=== PATIENT | female | born 1945 | race Caucasian/White ===

== ENCOUNTER 2020-10-21 10:59 | Outpatient (REF) | payer MEDICARE, SELFPAY ==
[2020-10-21 11:50] LABS: MANUAL DIFF FLAG NO
[2020-10-21 11:53] LABS: Basophils Percent Auto 0.6 % (0-2); Eosinophils Absolute Auto 0.2 X10*3/uL (0.0-0.4); Eosinophils Percent Auto 2.5 % (0-4); Hematocrit 42.5 % (37-47); Hemoglobin 14.2 g/dl (12.0-16.0); Imm Gran Abs Auto 0.04 X10*3/uL (0.00-0.03); Imm Gran Pct Auto 0.6 % (0.0-0.4); Lymphocytes Absolute Auto 1.7 X10*3/uL (1.2-4.9); Lymphocytes Percent Auto 23.9 % (20-40); Mean Corpuscular HGB Conc 33.4 g/dl (31.0-35.0); Mean Corpuscular Volume 92.8 fL (80-98); Mean Platelet Volume 9.9 fL (9.4-12.3); Monocytes Absolute Auto 0.7 X10*3/uL (0.1-1.2); Monocytes Percent Auto 9.8 % (2-11); Neutrophils Absolute Auto 4.5 X10*3/uL (2.0-8.3); Neutrophils Percent Auto 62.6 % (45-73); Platelet Count 238 X10*3/uL (160-400); Red Blood Count 4.58 X10*6/uL (4.20-5.50); White Blood Count 7.2 X10*3/uL (4.8-10.8)
[2020-10-21 12:29] LABS: Alanine Aminotransferase 23 U/L (0-31); Albumin Level 4.4 g/dL (3.5-5.0); Alkaline Phosphatase 74 U/L (39-117); Anion Gap 13 (12-20); Aspartate Amino Transferase 21 U/L (5-31); Bilirubin Total 0.6 mg/dL (0.0-1.0); Blood Urea Nitrogen 21 mg/dL (9-16); Calcium 9.5 mg/dL (8.4-10.2); Carbon Dioxide 26 mmol/L (22-29); Chloride 104 mmol/L (96-108); Estimated Glomerular Filt Rate > 60; Glucose Random 95 mg/dL (60-115); Magnesium 2.4 mg/dL (1.6-2.6); Potassium 4.5 mmol/l (3.3-5.1); Sodium 138 mmol/L (135-145); Total Protein 7.5 g/dL (6.5-8.0)
[2020-10-21 12:50] LABS: Thyroid Stimulating Hormone 1.16 uIU/mL (0.32-4.0)
[2020-10-21 13:08] LABS: Folate > 20.0 ng/mL (> or = 4.0); Vitamin B12 715 pg/mL (200-900)
== END 2020-10-21 11:00 | disposition home or self-care (01) ==
LOC: HO.LAB 10:59
PROVIDERS: PCP Internal Medicine; Visit Provider Internal Medicine
DX: R25.2 Cramp and spasm (principal); I10 Essential (primary) hypertension
CPT/HCPCS: 36415; 80053; 82607; 82746; 83735; 84443; 85025

== ENCOUNTER 2020-12-23 | Outpatient (REF) | payer MEDICARE, SELFPAY | END 2020-12-23 00:01 | disposition home or self-care (01) | LOC: HO.VC | PROVIDERS: Visit Provider Internal Medicine | DX: Z23 Encounter for immunization (principal) | CPT/HCPCS: 0011A ==

== ENCOUNTER 2021-01-20 | Outpatient (REF) | payer MEDICARE, SELFPAY | END 2021-01-20 00:01 | disposition home or self-care (01) | LOC: HO.VC | PROVIDERS: Visit Provider Internal Medicine | DX: Z23 Encounter for immunization (principal) | CPT/HCPCS: 0012A ==

== ENCOUNTER 2021-04-21 07:16 | Outpatient (REF) | payer MEDICARE, SELFPAY ==
[2021-04-21 08:00] LABS: MANUAL DIFF FLAG NO
[2021-04-21 08:08] LABS: Basophils Percent Auto 0.7 % (0-2); Eosinophils Absolute Auto 0.2 X10*3/uL (0.0-0.4); Eosinophils Percent Auto 2.5 % (0-4); Hematocrit 42.8 % (37-47); Hemoglobin 14.2 g/dl (12.0-16.0); Imm Gran Abs Auto 0.04 X10*3/uL (0.00-0.03); Imm Gran Pct Auto 0.7 % (0.0-0.4); Lymphocytes Absolute Auto 1.9 X10*3/uL (1.2-4.9); Lymphocytes Percent Auto 31.7 % (20-40); Mean Corpuscular HGB Conc 33.2 g/dl (31.0-35.0); Mean Corpuscular Hemoglobin 30.7 pg (27.0-33.0); Mean Corpuscular Volume 92.4 fL (80-98); Mean Platelet Volume 9.6 fL (9.4-12.3); Monocytes Absolute Auto 0.5 X10*3/uL (0.1-1.2); Monocytes Percent Auto 8.7 % (2-11); Neutrophils Absolute Auto 3.3 X10*3/uL (2.0-8.3); Neutrophils Percent Auto 55.7 % (45-73); Platelet Count 221 X10*3/uL (160-400); Red Blood Count 4.63 X10*6/uL (4.20-5.50); Red Cell Distribution Width 13.1 % (11.0-16.0)
[2021-04-21 08:16] LABS: Glucose Urine UA NEG (NEG); Leukocyte Esterase Urine NEG (NEG); Nitrite Urine NEG (NEG); PH 6.5 (5.0-8.0); Specific Gravity - Urine 1.015 (1.005-1.025); Urine Blood NEG (NEG); Urine Ketones NEG (NEG); Urine Protein NEG (NEG-TRACE)
[2021-04-21 08:20] LABS: Appearance Urine CLEAR; Color Urine YELLOW
[2021-04-21 08:27] LABS: RBC Urine 0 /HPF (0); Squamous Epithelial Cell Urine 1+ /LPF; WBC Urine 0 /HPF (0-4)
[2021-04-21 08:28] LABS: Mucus Urine 1+ /LPF; Renal Epithelial Cells Urine 1+ /LPF
[2021-04-21 08:43] LABS: Alanine Aminotransferase 21 U/L (0-31); Albumin Level 4.5 g/dL (3.5-5.0); Alkaline Phosphatase 78 U/L (39-117); Anion Gap 11 (12-20); Aspartate Amino Transferase 19 U/L (5-31); Bilirubin Total 0.9 mg/dL (0.0-1.0); Blood Urea Nitrogen 16 mg/dL (9-16); Calcium 9.6 mg/dL (8.4-10.2); Carbon Dioxide 28 mmol/L (22-29); Chloride 104 mmol/L (96-108); Cholesterol 172 mg/dL; Estimated Glomerular Filt Rate > 60; Glucose Random 108 mg/dL (60-115); HDL Cholesterol 68 mg/dL; LDL Cholesterol Calculated 84 mg/dl; Potassium 4.3 mmol/L (3.3-5.1); Sodium 139 mmol/L (135-145); Total Protein 7.3 g/dL (6.5-8.0); Triglycerides 103 mg/dL
[2021-04-21 09:09] LABS: Free T4 (Free Thyroxine) 1.16 ng/dL (0.71-1.85); Thyroid Stimulating Hormone 1.17 uIU/mL (0.32-4.0); Vitamin D 25-OH Total 51.4 ng/mL (>30)
[2021-04-21 09:17] LABS: Folate > 20.0 ng/mL (> or = 4.0); Vitamin B12 606 pg/mL (200-900)
== END 2021-04-21 07:17 | disposition home or self-care (01) ==
LOC: HO.LAB 07:16
PROVIDERS: PCP Internal Medicine; Visit Provider Internal Medicine
DX: I10 Essential (primary) hypertension (principal); E78.00 Pure hypercholesterolemia, unspecified
CPT/HCPCS: 36415; 80053; 80061; 81001; 82306; 82607; 82746; 84439; 84443; 85025

== ENCOUNTER 2022-01-31 07:52 | Outpatient (REF) | payer MEDICARE, SELFPAY ==
[2022-01-31 09:20] LABS: Cholesterol 213 mg/dL; HDL Cholesterol 63 mg/dL; LDL Cholesterol Calculated 125 mg/dl; Triglycerides 129 mg/dL
== END 2022-01-31 07:53 | disposition home or self-care (01) ==
LOC: HO.LAB 07:52
PROVIDERS: PCP Internal Medicine; Visit Provider Internal Medicine
DX: E78.00 Pure hypercholesterolemia, unspecified (principal)
CPT/HCPCS: 36415; 80061

== ENCOUNTER 2022-04-19 07:14 | Outpatient (REF) | payer MEDICARE, SELFPAY ==
[2022-04-19 07:30] LABS: MANUAL DIFF FLAG NO
[2022-04-19 07:34] LABS: Basophils Absolute Auto 0.1 X10*3/uL (0.0-0.2); Basophils Percent Auto 0.7 % (0-2); Eosinophils Absolute Auto 0.2 X10*3/uL (0.0-0.4); Eosinophils Percent Auto 2.9 % (0-4); Hemoglobin 14.1 g/dl (12.0-16.0); Imm Gran Abs Auto 0.04 X10*3/uL (0.00-0.03); Imm Gran Pct Auto 0.6 % (0.0-0.4); Lymphocytes Percent Auto 28.9 % (20-40); Mean Corpuscular HGB Conc 32.8 g/dl (31.0-35.0); Mean Corpuscular Hemoglobin 29.9 pg (27.0-33.0); Mean Corpuscular Volume 91.3 fL (80.0-98.0); Mean Platelet Volume 9.4 fL (9.4-12.3); Monocytes Absolute Auto 0.6 X10*3/uL (0.1-1.2); Monocytes Percent Auto 8.2 % (2-11); Neutrophils Absolute Auto 4.1 x10*3/uL (2.0-8.3); Neutrophils Percent Auto 58.7 % (45-73); Platelet Count 242 X10*3/uL (160-400); Red Blood Count 4.71 X10*6/uL (4.20-5.50); Red Cell Distribution Width 13.1 % (11.0-16.0); White Blood Count 6.9 X10*3/uL (4.8-10.8)
[2022-04-19 07:57] LABS: Alanine Aminotransferase 28 U/L (0-31); Albumin Level 4.3 g/dL (3.5-5.0); Alkaline Phosphatase 77 U/L (39-117); Anion Gap 13 (12-20); Aspartate Amino Transferase 22 U/L (5-31); Blood Urea Nitrogen 18 mg/dL (9-16); Calcium 9.6 mg/dL (8.4-10.2); Carbon Dioxide 24 mmol/L (22-29); Chloride 106 mmol/L (96-108); Cholesterol 227 mg/dL; Estimated Glomerular Filt Rate > 60; Glucose Random 114 mg/dL (60-115); HDL Cholesterol 64 mg/dL; LDL Cholesterol Calculated 143 mg/dl; Potassium 4.4 mmol/L (3.3-5.1); Sodium 139 mmol/L (135-145); Total Protein 7.4 g/dL (6.5-8.0); Triglycerides 101 mg/dL
[2022-04-19 08:06] LABS: Estimated Average Glucose 108 mg/dL; Hemoglobin A1c % 5.4 %
[2022-04-19 08:20] LABS: Vitamin D 25-OH Total 71.8 ng/mL (>30)
[2022-04-19 09:05] LABS: Folate > 20.0 ng/mL (> or = 4.0); Vitamin B12 550 pg/mL (200-900)
== END 2022-04-19 07:15 | disposition home or self-care (01) ==
LOC: HO.LAB 07:14
PROVIDERS: PCP Internal Medicine; Visit Provider Internal Medicine
DX: E78.00 Pure hypercholesterolemia, unspecified (principal)
CPT/HCPCS: 36415; 80053; 80061; 82306; 82607; 82746; 83036; 84439; 84443; 85025

== ENCOUNTER 2022-05-14 07:05 | Outpatient (REF) | payer MEDICARE, SELFPAY ==
[2022-05-14 07:51] LABS: Alanine Aminotransferase 26 U/L (0-31); Albumin Level 4.4 g/dL (3.5-5.0); Alkaline Phosphatase 81 U/L (39-117); Anion Gap 12 (12-20); Aspartate Amino Transferase 22 U/L (5-31); Bilirubin Total 1.1 mg/dL (0.0-1.0); Blood Urea Nitrogen 15 mg/dL (9-16); Calcium 9.5 mg/dL (8.4-10.2); Carbon Dioxide 26 mmol/L (22-29); Chloride 106 mmol/L (96-108); Estimated Glomerular Filt Rate > 60; Glucose Fasting 118 mg/dL (60-99); Potassium 4.3 mmol/L (3.3-5.1); Sodium 140 mmol/L (135-145); Total Protein 7.3 g/dL (6.5-8.0)
[2022-05-14 08:12] LABS: Thyroid Stimulating Hormone 1.32 uIU/mL (0.32-4.0); Vitamin D 25-OH Total 73.3 ng/mL (>30)
[2022-05-16 13:57] LABS: Calcium (PTHI) 9.6 mg/dL (8.6-10.4); PTHI 42 pg/mL (16-77)
[2022-05-19 00:17] LABS: N-Telopeptide 43 (see note); NTXCreaRU 103 mg/dL (20-275)
== END 2022-05-14 07:06 | disposition home or self-care (01) ==
LOC: HO.LAB 07:05
PROVIDERS: PCP Internal Medicine; Visit Provider Obstetrics & Gynecology Gynecology
DX: M85.9 Disorder of bone density and structure, unspecified (principal)
CPT/HCPCS: 36415; 80053; 82306; 82523; 83970; 84443

== ENCOUNTER 2022-12-15 09:59 | Outpatient (REF) | payer MEDICARE, SELFPAY ==
[2022-12-15 11:14] LABS: Estimated Average Glucose 108 mg/dL; Hemoglobin A1C 127.6205 umol/L; Hemoglobin A1c % 5.4 %
[2022-12-15 11:24] LABS: Alanine Aminotransferase 24 U/L (0-31); Albumin Level 4.3 g/dL (3.5-5.0); Alkaline Phosphatase 73 U/L (39-117); Anion Gap 10 (12-20); Aspartate Amino Transferase 19 U/L (5-31); Bilirubin Total 0.8 mg/dL (0.0-1.0); Blood Urea Nitrogen 15 mg/dL (9-16); Calcium 9.2 mg/dL (8.4-10.2); Carbon Dioxide 29 mmol/L (22-29); Chloride 106 mmol/L (96-108); Cholesterol 213 mg/dL; Estimated Glomerular Filt Rate > 60; Glucose Random 91 mg/dL (60-115); HDL Cholesterol 61 mg/dL; LDL Cholesterol Calculated 133 mg/dl; Potassium 4.3 mmol/L (3.3-5.1); Sodium 141 mmol/L (135-145); Triglycerides 96 mg/dL
== END 2022-12-15 10:00 | disposition home or self-care (01) ==
LOC: HO.LAB 09:59
PROVIDERS: PCP Internal Medicine; Visit Provider Internal Medicine
DX: E78.00 Pure hypercholesterolemia, unspecified (principal); R73.01 Impaired fasting glucose
CPT/HCPCS: 36415; 80053; 80061; 83036

== ENCOUNTER 2023-04-27 09:51 | Outpatient (REF) | payer MEDICARE, SELFPAY | END 2023-04-27 09:52 | disposition home or self-care (01) | LOC: HO.LAB 09:51 | PROVIDERS: PCP Internal Medicine; Visit Provider Internal Medicine | DX: Z13.89 Encounter for screening for other disorder (principal) ==

== ENCOUNTER 2023-10-04 09:55 | Outpatient (REF) | payer MEDICARE, SELFPAY ==
[2023-10-04 10:05] LABS: MANUAL DIFF FLAG NO
[2023-10-04 10:41] LABS: Basophils Percent Auto 0.7 % (0-2); Eosinophils Absolute Auto 0.2 X10*3/uL (0.0-0.4); Eosinophils Percent Auto 3.6 % (0-4); Hematocrit 42.7 % (37.0-47.0); Hemoglobin 14.2 g/dl (12.0-16.0); Imm Gran Abs Auto 0.02 X10*3/uL (0.00-0.03); Imm Gran Pct Auto 0.3 % (0.0-0.4); Lymphocytes Percent Auto 34.4 % (20-40); Mean Corpuscular HGB Conc 33.3 g/dl (31.0-35.0); Mean Corpuscular Hemoglobin 30.6 pg (27.0-33.0); Mean Platelet Volume 9.9 fL (9.4-12.3); Monocytes Absolute Auto 0.5 X10*3/uL (0.1-1.2); Monocytes Percent Auto 9.1 % (2-11); Neutrophils Percent Auto 51.9 % (45-73); Platelet Count 215 X10*3/uL (160-400); Red Blood Count 4.64 X10*6/uL (4.20-5.50); Red Cell Distribution Width 13.1 % (11.0-16.0); White Blood Count 5.9 X10*3/uL (4.8-10.8)
[2023-10-04 10:58] LABS: Estimated Average Glucose 108 mg/dL; Hemoglobin A1c % 5.4 % (<6.0)
[2023-10-04 11:22] LABS: Anion Gap 11 (12-20); Blood Urea Nitrogen 14 mg/dL (9-16); Calcium 9.5 mg/dL (8.4-10.2); Carbon Dioxide 28 mmol/L (22-29); Chloride 108 mmol/L (96-108); Estimated Glomerular Filt Rate > 60; Glucose Random 99 mg/dL (60-115); Potassium 4.2 mmol/L (3.3-5.1); Sodium 143 mmol/L (135-145)
[2023-10-04 11:23] LABS: Alanine Aminotransferase 29 U/L (0-31); Albumin Level 4.3 g/dL (3.5-5.0); Alkaline Phosphatase 73 U/L (39-117); Aspartate Amino Transferase 23 U/L (5-31); Bilirubin Total 0.8 mg/dL (0.0-1.0); Cholesterol 211 mg/dL (<200); HDL Cholesterol 60 mg/dL (>40); LDL Cholesterol Calculated 128 mg/dL (<100); Magnesium 2.2 mg/dL (1.6-2.6); Total Protein 7.5 g/dL (6.5-8.0); Triglycerides 117 mg/dL (<150)
[2023-10-04 11:40] LABS: Vitamin D 25-OH Total 57.5 ng/mL (>30)
[2023-10-04 12:31] LABS: Folate 14.3 ng/mL (> or = 4.0); Vitamin B12 541 pg/mL (200-900)
== END 2023-10-04 09:56 | disposition home or self-care (01) ==
LOC: HO.LAB 09:55
PROVIDERS: PCP Internal Medicine; Visit Provider Internal Medicine
DX: E78.00 Pure hypercholesterolemia, unspecified (principal); R73.01 Impaired fasting glucose; E55.9 Vitamin D deficiency, unspecified
CPT/HCPCS: 36415; 80053; 80061; 82306; 82607; 82746; 83036; 83735; 84439; 84443; 85025

== ENCOUNTER 2023-11-08 09:18 | Outpatient (AMB) | payer MEDICARE, SELFPAY ==
[2023-11-08 09:26] VITALS: BP 130/78; PULSE 66; O2SAT 98; BMI 27.6
--- NOTE | 2023-11-08 09:26 | MHC.PC.OV ---
Vital Signs 11/08/23 09:26 Height 5 ft 4 in Weight 161 lb 0.2 oz BMI 27.6 BP 130/78 Blood Pressure Location Lt brachial Position Sitting Pulse 66 Pulse Source Pulse Oximeter Pulse Oximetry (%) 98 Oxygen Delivery Method Room Air Intake Visit Reasons: IGT, Cholesterol [employer] Required: No Allergies ciprofloxacin [Cipro] Allergy (Unknown, Verified 11/08/23 09:27) Unknown pravastatin Adverse Reaction (Intermediate, Verified 11/08/23 09:27) Leg cramps rosuvastatin Adverse Reaction (Intermediate, Verified 11/08/23 09:27) Muscle Pain simvastatin Adverse Reaction (Intermediate, Verified 11/08/23 09:27) Muscle pain zetia Allergy (Mild, Uncoded 11/08/23 09:27) muscle aches Medication List - Last Reconciled 11/08/23 by Ro Velásquez MD acetaminophen (Tylenol) 650 mg (2 x 325 mg) PO Q6H PRN 15 days ascorbate calcium (vitamin C) 500 mg PO DAILY calcium carbonate-vitamin D3 600 mg-5 mcg (200 unit) (Calcium 600 + D(3)) 1 tab PO DAILY coenzyme Q10 (CoQ-10) 100 mg PO DAILY magnesium oxide 400 mg PO DAILY uqemvnmvmigm-rsud-gmtnf acid 18-400 mg-mcg (Centrum Complete) 1 tab PO DAILY vitamin B complex 1 tab PO DAILY Tobacco use date assessed: 11/08/23 Fall risk assessment: No Falls in past year Last assessed Fall Risk: 11/08/23 Dental Screening Dental Screen Date: 11/08/23 Did you have a dental visit in the last 12 months?: Yes Did you have a dental problem in the last 6 months where you did not have access to dental care?: No Was dental information given to patient?: Patient has dentist HPI IGT, Cholesterol HPI Details 78-year-old overweight female with hypercholesterolemia GERD impaired glucose tolerance and generalized anxiety disorder last seen for physical in April 2023 patient is here for follow-up. Colonoscopy is up-to-date May 2019 mammogram is up-to-date. complains of cramps on the thigh bilateral deny fall or trauma - work up negative- stands a lot but no trauma. States no particular time deny any fall or trauma patient keeps well hydrated does not go to the leg and states not restless leg. [facility] Medical History (Updated 11/08/23 @ 09:50 by Ro Velásquez MD) Hypercholesterolemia Hypertension Anxiety Impaired glucose tolerance Surgical History History of cataract surgery Hx of tonsillectomy Family History Father No problems noted. Mother No problems noted. Sister Ovarian cancer Sister Lung cancer Social History (Updated 05/16/23 @ 09:25 by Ro Velásquez MD) Housing: House Alcohol intake: current Alcohol intake frequency: a few times a month Patient Tobacco Use Status: Former Tobacco user Tobacco use type: Cigarette Years Smoked: late 20 year old e-Cigarette/Vaping Use: Never Used service: No Current occupational status: retired Cognitive needs: No Hearing needs: No Vision needs: No Questionnaire Thrive Questionnaire Date Thrive assessed: 12/30/22 AUDIT C Alcohol Use Questionnaire (AUDIT-C) 1. How often do you have a drink containing alcohol?: Monthly or less 2. How many drinks containing alcohol do you have on a typical day when you are drinking?: 1 or 2 3. How often do you have six or more drinks on one occasion?: Never Total Score: 1 LAUREEN-7 AMB Questionnaire LAUREEN-7 Date LAUREEN - 7 assessed: 12/30/22 Source: Developed by Drs. Sukumar Mnotero, Radha Cantor, Austin Hester and colleagues, with an educational nima from [employer]. Physical exam (Primary Care) Vital Signs: Last Vital Signs Pulse 66 11/08/23 09:26 BP 130/78 11/08/23 09:26 Pulse Ox 98 11/08/23 09:26 Oxygen Delivery Method Room Air 11/08/23 09:26 BMI result Body Mass Index 27.6 Tobacco/Smoking Status: Tobacco use Status Tobacco use date assessed 11/08/23 11/08/23 09:27 Patient Tobacco Use Status Former Tobacco user 11/08/23 09:27 Tobacco use type Cigarette 11/08/23 09:27 e-Cigarette/Vaping Use Never Used 11/08/23 09:27 Thrive Assessment: Date of Thrive Assessment Date Thrive assessed 12/30/22 11/08/23 09:27 Const General: alert; No acute distress Eyes Conjunctivae: conjunctivae normal Resp Auscultation: clear to auscultation bilaterally Cardio Rate: regular rate Rhythm: regular rhythm GI Inspection: Yes normal to inspection Extrem General: Yes normal to inspection and No edema Assessment and Plan Assessment & Plan (1) Hypertension: Code(s): I10 - Essential (primary) hypertension Qualifiers: Hypertension type: essential hypertension Qualified Code(s): I10 - Essential (primary) hypertension Plan: Patient presently on no medication for blood pressure (2) Hypercholesterolemia: Code(s): E78.00 - Pure hypercholesterolemia, unspecified Plan: Avoid fried foods, chicken skin, eggs, butter margarine, pastries and meat. Be it pork or beef they have a lot of cholesterol LDL goal of less than 130 and triglyceride of less than 150. Patient's blood work shows normal cholesterol (3) GERD (gastroesophageal reflux disease): Code(s): K21.9 - Gastro-esophageal reflux disease without esophagitis Plan: Avoid the foods that causes that usually spicy foods, tomato products, juices, coffee, soda and foods that your sensitive to. After eating do not lie down, allow 3-4 hours before in lie down. And keep the head of bed above 30 degrees to avoid the acid from going up. (4) Generalized anxiety disorder: Code(s): F41.1 - Generalized anxiety disorder Plan: Stable (5) Impaired fasting blood sugar: Code(s): R73.01 - Impaired fasting glucose Plan: Decrease the amount of carbohydrate intake, pasta, bread, rice and potatoes are all sugar and that is aside from all the sweet stuff, remember that fruits are good but they are Sweet also. (6) Thigh cramp: Code(s): R25.2 - Cramp and spasm Plan: will send patient for PT. decline muscle relaxant due to drowsiness Coding Level of Care Code Est Pt Level 4 (91511) Diagnoses Essential hypertension I10 Hypertension type: essential hypertension Hypercholesterolemia E78.00 GERD (gastroesophageal reflux disease) K21.9 Generalized anxiety disorder F41.1 Impaired fasting blood sugar R73.01 Thigh cramp R25.2
== END 2023-11-08 10:04 | disposition home or self-care (01) ==
PROVIDERS: PCP Internal Medicine; Visit Provider Internal Medicine
DX: I10 Essential (primary) hypertension (principal); E78.00 Pure hypercholesterolemia, unspecified; K21.9 Gastro-esophageal reflux disease without esophagitis; F41.1 Generalized anxiety disorder; R73.01 Impaired fasting glucose; R25.2 Cramp and spasm
CPT/HCPCS: 99214

== ENCOUNTER 2023-12-27 09:31 | Outpatient (AMB) | payer MEDICARE, SELFPAY ==
[2023-12-27 09:31] VITALS: BP 160/80; PULSE 89; TEMP 36.6; O2SAT 96; BMI 28.1
--- NOTE | 2023-12-27 09:31 | MHC.OFFWIV ---
Intake Vital Signs 12/27/23 09:31 Height 5 ft 4 in Weight 164 lb BMI 28.1 BP 160/80 H Blood Pressure Location Lt brachial Position Sitting Pulse 89 Pulse Source Pulse Oximeter Temp 97.8 F Temp Source Temporal Artery Scan Pulse Oximetry (%) 96 Oxygen Delivery Method Room Air Intake Visit Reasons: EP Lft shoulder pain [id number] Intake Note: pt is here today for lft shoulder pain started 2 days ago Patient Tobacco Use Status: Former Tobacco user Allergies ciprofloxacin [Cipro] Allergy (Unknown, Verified 12/27/23 09:32) Unknown pravastatin Adverse Reaction (Intermediate, Verified 12/27/23 09:32) Leg cramps rosuvastatin Adverse Reaction (Intermediate, Verified 12/27/23 09:32) Muscle Pain simvastatin Adverse Reaction (Intermediate, Verified 12/27/23 09:32) Muscle pain zetia Allergy (Mild, Uncoded 11/08/23 09:27) muscle aches HPI HPI Comments History of Present Illness Details This is a 78-year-old female with a past medical history of hypertension, hyperlipidemia, anxiety and gastroesophageal reflux disease presenting for evaluation of left shoulder pain that has been present for the past 2 days. Patient denies any acute injury or trauma to her left shoulder. Patient describes injuring her left shoulder approximately 2 years ago when she was grabbing a bunch of bananas out of a box that was at eye level. Patient did not pursue any further treatment, imaging or physical therapy at that time. Patient has been taking Tylenol without relief of her discomfort over the past two days. Patient describes her pain as an 8/10 aching sensation and describes having difficulty combing her hair, pulling up her pants and carrying heavy items. Patient states that her has dementia and she has his primary caregiver which is her primary concern. Patient denies having any chest pain, shortness for breath, nausea, vomiting, abdominal pain or back pain. ON LICENSE OF [facility] Medical History Hypercholesterolemia Hypertension Anxiety Impaired glucose tolerance Surgical History History of cataract surgery Hx of tonsillectomy Family History Father No problems noted. Mother No problems noted. Sister Ovarian cancer Sister Lung cancer Social History Housing: House Alcohol intake: current Alcohol intake frequency: a few times a month Patient Tobacco Use Status: Former Tobacco user Tobacco use type: Cigarette Years Smoked: late 20 year old e-Cigarette/Vaping Use: Never Used service: No Current occupational status: retired Cognitive needs: No Hearing needs: No Vision needs: No Review of Systems ENT Denies neck pain Card Reports no additional complaints, Denies chest pain, Denies dyspnea and Denies dyspnea on exertion Resp Reports as per HPI, Denies dyspnea and Denies dyspnea on exertion Musc Details: left anterior shoulder pain; denies neck pain Denies neck pain, Denies numbness, Denies radiating pain into limb, Denies stiffness and Denies tingling Skin/Breast Reports system reviewed and no additional complaints, except as documented Neuro Denies numbness and Denies tingling Physical Exam Vital Signs: Last Vital Signs Temp 97.8 F 12/27/23 09:31 Pulse 89 12/27/23 09:31 BP 160/80 H 12/27/23 09:31 Pulse Ox 96 12/27/23 09:31 Oxygen Delivery Method Room Air 12/27/23 09:31 BMI result Body Mass Index 28.1 Patient is hypertensive. Const General: no acute distress Nutritional Appearance: average body habitus Orientation/consciousness: patient oriented x3 Limitations: no limitations Resp Effort & Inspection: normal respiratory effort Auscultation: clear to auscultation bilaterally Cardio Rate: regular rate Rhythm: regular rhythm Skin General skin exam: no rashes or lesions noted Neuro General: patient oriented x3 Extrem Left upper extremity: normal to inspection, shoulder/upper arm (point tenderness L anterior shoulder overlying the AC joint) Details: inspection abnormal, tenderness and abnormal ROM (pain L. shoulder with adduction of LUE against resistance); no swelling, no deformity and no unsual warmth and hand (chicle grinder feeder strength equal bilaterally) Psych Appearance: grossly normal Mental Status: mental status grossly normal Insight: Good insight present (Psych) Judgement: Good judgement present (Psych) Results Reviewed Results Reviewed: EKG NSR rate 97bpm; no ischemic changes. Assessment & Plan Assessment & Plan (1) Left shoulder pain: Comment: Symptoms consistent with a L. shoulder tendinopathy; no clinical concern for fracture - imaging deferred. No concern for ACS. Code(s): M25.512 - Pain in left shoulder Qualifiers: Chronicity: acute Qualified Code(s): M25.512 - Pain in left shoulder Plan: EC Naprosyn BID x 10 days; patient to follow-up with PCP for physical therapy as needed. Orders: Orders AMB EKG-In Office Today M25.512 - Pain in left shoulder Medications: New naproxen (EC-Naprosyn) 375 mg PO BID 20 tabs 0RF Coding Level of Care Code Est Pt Level 4 (99608) Diagnoses Acute pain of left shoulder M25.512 Chronicity: acute Time Spent (min) 25
== END 2023-12-27 10:11 | disposition home or self-care (01) ==
PROVIDERS: PCP Internal Medicine; Visit Provider Physician Assistant
DX: M25.512 Pain in left shoulder (principal)
CPT/HCPCS: 99214

== ENCOUNTER 2024-04-23 06:59 | Outpatient (REF) | payer MEDICARE, SELFPAY ==
[2024-04-23 07:10] LABS: MANUAL DIFF FLAG NO
[2024-04-23 08:09] LABS: Basophils Absolute Auto 0.1 X10*3/uL (0.0-0.2); Basophils Percent Auto 0.8 % (0-2); Eosinophils Absolute Auto 0.2 X10*3/uL (0.0-0.4); Eosinophils Percent Auto 3.2 % (0-4); Hematocrit 40.5 % (37.0-47.0); Hemoglobin 13.5 g/dl (12.0-16.0); Imm Gran Abs Auto 0.06 X10*3/uL (0.00-0.03); Lymphocytes Absolute Auto 1.8 X10*3/uL (1.2-4.9); Lymphocytes Percent Auto 30.5 % (20-40); Mean Corpuscular HGB Conc 33.3 g/dl (31.0-35.0); Mean Corpuscular Hemoglobin 30.9 pg (27.0-33.0); Mean Corpuscular Volume 92.7 fL (80.0-98.0); Monocytes Absolute Auto 0.5 X10*3/uL (0.1-1.2); Monocytes Percent Auto 8.9 % (2-11); Neutrophils Absolute Auto 3.3 x10*3/uL (2.0-8.3); Neutrophils Percent Auto 55.6 % (45-73); Platelet Count 227 X10*3/uL (160-400); Red Blood Count 4.37 X10*6/uL (4.20-5.50); Red Cell Distribution Width 12.9 % (11.0-16.0); White Blood Count 5.9 X10*3/uL (4.8-10.8)
[2024-04-23 08:53] LABS: Appearance Urine Clear; Color Urine Yellow; Glucose Urine UA Negative (Negative); Leukocyte Esterase Urine Moderate (2+) (Negative); Nitrite Urine Negative (Negative); UMIC TRIGGER UACC YES; Urine Blood Negative (Negative); Urine Ketones Negative (Negative); Urine Protein Negative (Neg-Trace)
[2024-04-23 08:57] LABS: Bacteria Urine None Seen (None Seen); Hyaline Casts Urine 0-2 /LPF (0-2); RBC Urine 0-2 /HPF (0-2); UACC Culture Trigger YES; WBC Urine 21-50 /HPF (0-5)
[2024-04-23 09:04] LABS: Alanine Aminotransferase 20 U/L (0-31); Albumin Level 4.2 g/dL (3.5-5.0); Alkaline Phosphatase 75 U/L (39-117); Anion Gap 14 (12-20); Aspartate Amino Transferase 18 U/L (5-31); Bilirubin Total 0.8 mg/dL (0.0-1.0); Blood Urea Nitrogen 15 mg/dL (9-16); Calcium 9.4 mg/dL (8.4-10.2); Carbon Dioxide 22 mmol/L (22-29); Chloride 109 mmol/L (96-108); Cholesterol 203 mg/dL (<200); Estimated Glomerular Filt Rate > 60; Free T4 (Free Thyroxine) 1.09 ng/dL (0.71-1.85); Glucose Random 110 mg/dL (60-115); HDL Cholesterol 58 mg/dL (>40); LDL Cholesterol Calculated 125 mg/dL (<100); Potassium 3.9 mmol/L (3.3-5.1); Sodium 141 mmol/L (135-145); Total Protein 7.3 g/dL (6.5-8.0); Triglycerides 100 mg/dL (<150)
[2024-04-23 09:09] LABS: Estimated Average Glucose 111 mg/dL; Hemoglobin A1C 168.7656 umol/L; Hemoglobin A1c % 5.5 % (<6.0)
[2024-04-23 09:15] LABS: Folate 14.7 ng/mL (> or = 4.0); Vitamin B12 436 pg/mL (200-900)
== END 2024-04-23 07:00 | disposition home or self-care (01) ==
LOC: HO.LAB 06:59
PROVIDERS: PCP Internal Medicine; Visit Provider Internal Medicine
DX: R73.01 Impaired fasting glucose (principal); E78.00 Pure hypercholesterolemia, unspecified; I10 Essential (primary) hypertension; R30.0 Dysuria
CPT/HCPCS: 36415; 80053; 80061; 81001; 82607; 82746; 83036; 84439; 84443; 85025; 87086

== ENCOUNTER 2024-05-17 08:41 | Outpatient (AMB) | payer MEDICARE, SELFPAY ==
[2024-05-17 09:01] VITALS: BP 138/68; PULSE 76; O2SAT 98; BMI 27.6
--- NOTE | 2024-05-17 09:01 | A.OFFPC_ITS ---
Vital Signs 05/17/24 09:01 Height 5 ft 4 in Weight 161 lb 0.5 oz BMI 27.6 BP 138/68 Blood Pressure Location Lt brachial Position Sitting Pulse 76 Pulse Source Pulse Oximeter Pulse Oximetry (%) 98 Oxygen Delivery Method Room Air Intake Visit Reasons: Annual Exam [employer] Qualified Required: No Allergies ciprofloxacin [Cipro] Allergy (Unknown, Verified 05/17/24 09:01) Unknown pravastatin Adverse Reaction (Intermediate, Verified 05/17/24 09:01) Leg cramps rosuvastatin Adverse Reaction (Intermediate, Verified 05/17/24 09:01) Muscle Pain simvastatin Adverse Reaction (Intermediate, Verified 05/17/24 09:01) Muscle pain zetia Allergy (Mild, Uncoded 05/17/24 09:01) muscle aches Medication List - Last Reconciled 05/17/24 by Ro Velásquez MD ascorbate calcium (vitamin C) 500 mg PO DAILY calcium carbonate-vitamin D3 600 mg-5 mcg (200 unit) (Calcium 600 + D(3)) 1 tab PO DAILY magnesium oxide 400 mg PO DAILY edbnqjhijzpq-scrd-splja acid 18-400 mg-mcg (Centrum Complete) 1 tab PO DAILY naproxen (EC-Naprosyn) 375 mg PO BID vitamin B complex 1 tab PO DAILY Tobacco use date assessed: 05/17/24 Fall risk assessment: No Falls in past year Last assessed Fall Risk: 05/17/24 Dental Screening Dental Screen Date: 05/17/24 Did you have a dental visit in the last 12 months?: Yes Did you have a dental problem in the last 6 months where you did not have access to dental care?: No Was dental information given to patient?: Patient has dentist HPI Annual Exam HPI Details 79-year-old overweight female with hyper tension hypercholesterolemia GERD impaired glucose tolerance and generalized anxiety disorder last seen in 11/08/2023 patient is here for physical exam. Patient's colonoscopy tubular adenoma last done in May 2019 mammogram is due and bone density is being done by gynecology. Review of the notes was in the ER April 26 for fall with bilateral knee pain no fractures. In December complained of left shoulder pain and was given an anti-inflammatory. using a slip on shoes- helping . occ dizzy. seen gyne and concern on frequency [facility] Medical History (Updated 05/17/24 @ 09:27 by Ro Velásquez MD) Hypercholesterolemia Anxiety Impaired glucose tolerance Surgical History History of cataract surgery Hx of tonsillectomy Family History Father No problems noted. Mother No problems noted. Sister Ovarian cancer Sister Lung cancer Social History (Updated 05/17/24 @ 09:27 by Ro Velásquez MD) Housing: House Alcohol intake: current Alcohol intake frequency: a few times a month Comment: once a month 1-2 drinks Patient Tobacco Use Status: Former Tobacco user Tobacco use type: Cigarette Years Smoked: late 20 year old e-Cigarette/Vaping Use: Never Used service: No Current occupational status: retired Cognitive needs: No Hearing needs: No Vision needs: No Questionnaire PHQ-9 Over the last 2 weeks, how often have you been bothered by any of the following problems? 1. Little interest or pleasure in doing things: not at all 2. Feeling down, depressed, or hopeless: not at all 3. Trouble falling or staying asleep, or sleeping too much: not at all 4. Feeling tired or having little energy: not at all 5. Poor appetite or overeating: not at all 6. Feeling bad about yourself - or that you are a failure or have let yourself or your family down: not at all 7. Trouble concentrating on things, such as reading the newspaper or watching television: not at all 8. Moving or speaking so slowly that other people could have noticed. Or the opposite - being so fidgety or restless that you have been moving around a lot more than usual: not at all 9. Thoughts that you would be better off or of hurting yourself in some way: not at all Total score: 0 Depression Screening Interpretation: Negative Depression Screening Done: Yes Source: Developed by Drs. Sukumar Montero, Radha Cantor, Austin Hester and colleagues, with an educational nima from [employer]. Thrive Questionnaire Date Thrive assessed: 12/30/22 AUDIT C Alcohol Use Questionnaire (AUDIT-C) 1. How often do you have a drink containing alcohol?: Monthly or less 2. How many drinks containing alcohol do you have on a typical day when you are drinking?: 1 or 2 3. How often do you have six or more drinks on one occasion?: Never Total Score: 1 LAUREEN-7 AMB Questionnaire LAUREEN-7 Date LAUREEN - 7 assessed: 05/17/24 Source: Developed by Drs. Sukumar Montero, Radha Cantor, Austin Hester and colleagues, with an educational nima from [employer]. Review of Systems Const Denies poor appetite and Denies weakness Eyes Denies no additional complaints ENT Reports Normal hearing present, Denies dizziness, Denies nasal congestion, Denies tinnitus and Denies sore throat Card Denies chest pain, Denies syncope, Denies rapid heart rate and Denies dyspnea Resp Denies cough and Denies dyspnea GI Denies change in stool character, Reports constipation, Denies diarrhea, Denies nausea and Denies vomiting Denies urinary frequency, Denies difficulty voiding and Denies dysuria Neuro Reports Normal hearing present, Denies confusion, Denies dizziness, Denies syncope and Denies weakness Psych Denies confusion Physical exam (Primary Care) Vital Signs: Last Vital Signs Pulse 76 05/17/24 09:01 BP 138/68 05/17/24 09:01 Pulse Ox 98 05/17/24 09:01 Oxygen Delivery Method Room Air 05/17/24 09:01 BMI result Body Mass Index 27.6 Tobacco/Smoking Status: Tobacco use Status Tobacco use date assessed 05/17/24 05/17/24 09:02 Patient Tobacco Use Status Former Tobacco user 05/17/24 09:02 Tobacco use type Cigarette 05/17/24 09:02 e-Cigarette/Vaping Use Never Used 05/17/24 09:02 PHQ-9: PHQ-9 Score PHQ-9: Total score 0 05/17/24 09:06 Depression Screening Interpretation: Negative Thrive Assessment: Date of Thrive Assessment Date Thrive assessed 12/30/22 05/17/24 09:02 Const General: No confusion Orientation/consciousness: No confusion HENMT Head: Yes normocephalic Ears: external ears normal and TM's normal bilaterally Face and sinus: Yes normal facial exam Mouth: moist mucous membranes Throat: Yes tonsils normal Eyes Conjunctivae: conjunctivae normal Pupils: Equal, round and reactive pupils present and Pupil accommodation reflex normal Direct Ophthalmoscopy: normal light reflex Neck Neck: No lymphadenopathy Thyroid: Thyroid normal Chest Chest palpation & inspection: normal inspection of the chest Resp Effort & Inspection: normal respiratory effort and no audible wheezes Auscultation: clear to auscultation bilaterally, no crackles, no wheezes and lung sounds not diminished Cardio Rate: regular rate Rhythm: regular rhythm Peripheral pulses: radial pulses present and dorsalis pedis present GI Palpation (GI): no masses Auscultation: normal bowel sounds and normoactive bowel sounds Rectal Exam - Female: deferred Skin General skin exam: no rashes or lesions noted Rashes: no rashes Neuro General: No confusion Cranial nerves: Yes Equal, round and reactive pupils present and Yes Normal hearing present Cognition (Neuro): normal cognition Gait exam (Neuro): Normal gait present Motor exam (neuro): 5/5 motor strength present throughout Deep tendon reflexes (DTR's): Right brachioradialis reflex intensity grade: 2+, Left brachioradialis reflex intensity grade: 2+, Right patellar reflex intensity grade: 2+ and Left patellar reflex intensity grade: 2+ Extrem General: No edema Assessment and Plan Assessment & Plan (1) Annual physical exam: Code(s): Z00.00 - Encounter for general adult medical examination without abnormal findings Plan: Patient is advised to eat healthy, keep well hydrated, keep active and have adequate sleep. (2) Hypercholesterolemia: Code(s): E78.00 - Pure hypercholesterolemia, unspecified Plan: Avoid fried foods, chicken skin, eggs, butter margarine, pastries and meat. Be it pork or beef they have a lot of cholesterol (3) GERD (gastroesophageal reflux disease): Code(s): K21.9 - Gastro-esophageal reflux disease without esophagitis Plan: Avoid the foods that causes that usually spicy foods, tomato products, juices, coffee, soda and foods that your sensitive to. After eating do not lie down, allow 3-4 hours before in lie down. And keep the head of bed above 30 degrees to avoid the acid from going up. (4) Impaired fasting blood sugar: Code(s): R73.01 - Impaired fasting glucose Plan: Decrease the amount of carbohydrate intake, pasta, bread, rice and potatoes are all sugar and that is aside from all the sweet stuff, remember that fruits are good but they are Sweet also. (5) Generalized anxiety disorder: Code(s): F41.1 - Generalized anxiety disorder Plan: Stable (6) Overweight (BMI 25.0-29.9): Code(s): E66.3 - Overweight Plan: Continue with diet and exercise Medications: Refilled naproxen (EC-Naprosyn) 375 mg PO BID 20 tabs 0RF Coding Level of Care Code Est Pt Prev Care >65y(35059) Diagnoses Annual physical exam Z00.00 Hypercholesterolemia E78.00 GERD (gastroesophageal reflux disease) K21.9 Impaired fasting blood sugar R73.01 Generalized anxiety disorder F41.1 Overweight (BMI 25.0-29.9) E66.3 Additional Codes PHQ-9 - 56807 - PHQ-9 Billing: ([id number])
== END 2024-05-17 09:44 | disposition home or self-care (01) ==
PROVIDERS: PCP Internal Medicine; Visit Provider Internal Medicine
DX: Z00.00 Encounter for general adult medical examination without abnormal findings (principal); E78.00 Pure hypercholesterolemia, unspecified; K21.9 Gastro-esophageal reflux disease without esophagitis; R73.01 Impaired fasting glucose; F41.1 Generalized anxiety disorder; E66.3 Overweight
CPT/HCPCS: 99397

== ENCOUNTER 2024-07-10 09:32 | Outpatient (REF) | payer MEDICARE, SELFPAY ==
[2024-07-10 10:17] LABS: Appearance Urine Clear; Color Urine Yellow; Glucose Urine UA Negative (Negative); Leukocyte Esterase Urine Trace (Negative); Nitrite Urine Negative (Negative); UMIC TRIGGER UACC YES; Urine Blood Negative (Negative); Urine Ketones Negative (Negative); Urine Protein Negative (Neg-Trace)
[2024-07-10 10:23] LABS: Bacteria Urine None Seen (None Seen); Hyaline Casts Urine 0-2 /LPF (0-2); RBC Urine 0-2 /HPF (0-2); Squamous Epithelial Cell Urine 0-2 /HPF (0-2); WBC Urine 0-5 /HPF (0-5)
== END 2024-07-10 09:33 | disposition home or self-care (01) ==
LOC: HO.LAB 09:32
PROVIDERS: PCP Internal Medicine; Visit Provider Internal Medicine
DX: R30.0 Dysuria (principal); I10 Essential (primary) hypertension
CPT/HCPCS: 81001

== ENCOUNTER 2024-09-24 10:09 | Outpatient (AMB) | payer MEDICARE, SELFPAY ==
[2024-09-24 10:15] VITALS: BP 132/68; PULSE 78; O2SAT 98; BMI 27.5
--- NOTE | 2024-09-24 10:15 | A.OFFPC_ITS ---
Vital Signs 09/24/24 10:15 Height 5 ft 4 in Weight 160 lb 0.4 oz BMI 27.5 BP 132/68 Blood Pressure Location Lt brachial Position Sitting Pulse 78 Pulse Source Pulse Oximeter Pulse Oximetry (%) 98 Oxygen Delivery Method Room Air Intake Visit Reasons: scabs on nose Allergies ciprofloxacin [Cipro] Allergy (Unknown, Verified 09/24/24 10:16) Unknown pravastatin Adverse Reaction (Intermediate, Verified 09/24/24 10:16) Leg cramps rosuvastatin Adverse Reaction (Intermediate, Verified 09/24/24 10:16) Muscle Pain simvastatin Adverse Reaction (Intermediate, Verified 09/24/24 10:16) Muscle pain zetia Allergy (Mild, Uncoded 09/24/24 10:16) muscle aches Medication List - Last Reconciled 09/24/24 by Mago Christianson PA-C ascorbate calcium (vitamin C) 500 mg PO DAILY calcium carbonate-vitamin D3 600 mg-5 mcg (200 unit) (Calcium 600 + D(3)) 1 tab PO DAILY magnesium oxide 400 mg PO DAILY ueexwhxrxuht-qoqk-mjbks acid 18-400 mg-mcg (Centrum Complete) 1 tab PO DAILY naproxen (EC-Naprosyn) 375 mg PO BID vitamin B complex 1 tab PO DAILY Tobacco use date assessed: 05/17/24 Dental Screening Dental Screen Date: 05/17/24 HPI scabs on nose HPI Details 79-year-old overweight female with hyper tension hypercholesterolemia GERD impaired glucose tolerance and generalized anxiety disorder last seen by Dr. Velásquez 04/2024 coming in for acute problem. Patient states several months ago she hit her nose on the car door which resulted in a scab. Since then the scab has been healing however she will occasionally scrape it off in the shower accidentally. She is concerned because the scab does not seem to be healing. She was advised to use vaseline on the area which has been helping. She also mentions she has an ongoing issue with thigh cramping. She does have a history of arthritis in her feet which alters her gait. The cramping is primarily at night and will happen after she has particularly busy days. [facility] Medical History (Updated 09/24/24 @ 12:47 by Mago Christianson PA-C) Hypercholesterolemia Anxiety Impaired glucose tolerance Surgical History History of cataract surgery Hx of tonsillectomy Family History Father No problems noted. Mother No problems noted. Sister Ovarian cancer Sister Lung cancer Social History (Updated 05/17/24 @ 09:27 by Ro Velásquez MD) Housing: House Alcohol intake: current Alcohol intake frequency: a few times a month Comment: once a month 1-2 drinks Patient Tobacco Use Status: Former Tobacco user Tobacco use type: Cigarette Years Smoked: late 20 year old e-Cigarette/Vaping Use: Never Used service: No Current occupational status: retired Cognitive needs: No Hearing needs: No Vision needs: No Questionnaire Thrive Questionnaire Date Thrive assessed: 12/30/22 LAUREEN-7 AMB Questionnaire LAUREEN-7 Date LAUREEN - 7 assessed: 05/17/24 Source: Developed by Drs. Sukumar Montero, Radha Cantor, Austin Hester and colleagues, with an educational nima from [employer]. Review of Systems Const Denies body aches, Denies chills, Denies fever(s) and Denies poor appetite Eyes Reports no additional complaints Card Denies chest pain and Denies dyspnea Resp Denies cough and Denies dyspnea GI Denies nausea and Denies vomiting Reports no additional complaints Musc Reports no additional complaints, Reports as per HPI and Reports abnormal gait Skin/Breast Reports system reviewed and no additional complaints, except as documented Neuro Reports abnormal gait Psych Reports no additional complaints Physical exam (Primary Care) Vital Signs: Last Vital Signs Pulse 78 09/24/24 10:15 BP 132/68 09/24/24 10:15 Pulse Ox 98 09/24/24 10:15 Oxygen Delivery Method Room Air 09/24/24 10:15 BMI result Body Mass Index 27.5 Tobacco/Smoking Status: Tobacco use Status Tobacco use date assessed 05/17/24 09/24/24 10:23 Patient Tobacco Use Status Former Tobacco user 09/24/24 10:23 Tobacco use type Cigarette 09/24/24 10:23 e-Cigarette/Vaping Use Never Used 09/24/24 10:23 Thrive Assessment: Date of Thrive Assessment Date Thrive assessed 12/30/22 09/24/24 10:23 Const General: cooperative, healthy appearing, comfortable and no acute distress Orientation/consciousness: patient oriented x3 HENIA Other: Small scab on the bridge of the nose with routine healing. Head: Yes normocephalic Ears: hearing grossly normal bilaterally General nose exam: Normal external nose present Eyes General: appearance normal, both eyes and all related structures Conjunctivae: conjunctivae normal Neck Neck: Yes full ROM and Yes no lymphadenopathy Resp Effort & Inspection: normal respiratory effort Auscultation: clear to auscultation bilaterally, no crackles, no rales, no rhonchi and no wheezes Cardio Rate: regular rate Rhythm: regular rhythm Back/Spine/Pelvis Other: No pain to palpation of spine, bilateral hips or thighs. No calf swelling. Skin General skin exam: no rashes or lesions noted Neuro General: patient oriented x3 Gait exam (Neuro): Normal gait present Extrem General: Yes normal to inspection, Yes full ROM and No edema Psych Affect: normal affect Attitude: cooperative Insight: Good insight present (Psych) Judgement: Good judgement present (Psych) Results AMB Urinalysis, Automated UA Leukoctes 0 Negar/uL Last Edit by JE Dominguez on 09/24/24 10:38 UA Nitrite Negative Last Edit by Adelaide Rojas Martha on 09/24/24 10:38 UA Urobilinogen 0.2 mg/dL Last Edit by Adelaide Rojas Martha on 09/24/24 10:38 UA Protein 0 mg/dL Last Edit by Adelaide Rojas Martha on 09/24/24 10:38 UA pH 5.5 Last Edit by Adelaide Rojas Martha on 09/24/24 10:38 UA Blood 0 Ryland/uL Last Edit by Adelaide Rojas [facility] on 09/24/24 10:38 UA Specific Starke 1.030 Last Edit by Adelaide Rojas Martha on 09/24/24 10:38 UA Ketone Negative Last Edit by JE Dominguez on 09/24/24 10:38 UA Bilirubin 0 mg/dL Last Edit by Adelaide Rojas Martha on 09/24/24 10:38 UA Glucose 0 mg/dL Last Edit by Adelaide Rojas Martha on 09/24/24 10:38 Results Reviewed Results Reviewed: Laboratory Last Values Urine pH (Auto) 5.5 09/24/24 10:23 Specific [place]ke (Auto) 1.030 09/24/24 10:23 Urine Protein (Auto) 0 mg/dL 09/24/24 10:23 Glucose (UA)(Auto) 0 mg/dL 09/24/24 10:23 Urine Ketones (Auto) Negative 09/24/24 10:23 Urine Blood (Auto) 0 Ryland/uL 09/24/24 10:23 Urine Nitrite (Auto) Negative 09/24/24 10:23 Urine Bilirubin (Auto) 0 mg/dL 09/24/24 10:23 Urine Urobilinogen (Auto) 0.2 mg/dL 09/24/24 10:23 Leukocyte Esterase (Auto) 0 Negar/uL 09/24/24 10:23 Coding Level of Care Code Est Pt Level 3 (79154) Diagnoses Joint pain M25.50 Scab R23.4 Thigh cramp R25.2 Polyuria R35.89 Assessment & Plan Assessment & Plan (1) Joint pain: Code(s): M25.50 - Pain in unspecified joint Category: Medical Plan: Patient complaining of bilateral hands and feet. Previously diagnosed with arthritis and is not interested in further workup or orthopedics referral at this time. Ordered for rheumatoid factor to evaluate for RA. (2) Scab: Comment: scab on bridge of nose present for several months Code(s): R23.4 - Changes in skin texture Category: Medical Plan: Scab appears to have routine healing and no evidence of infection at this time. Patient requesting evaluation by dermatology and referral was placed today. (3) Thigh cramp: Code(s): R25.2 - Cramp and spasm Category: Medical Plan: Patient complaining of thigh cramping which has been ongoing for several years. Discussed it (4) Polyuria: Code(s): R35.89 - Other polyuria Category: Medical Plan: Patient complaining of frequent urination. She states she will occasionally have nights where she uses the restroom more often but this will come and go. Urinalysis negative for infection and patient would like to defer further workup at this time. Plan This note was constructed using voice recognition software. While every effort has been made to ensure accuracy and admissions rn, still areas may have been included sometimes these areas may affect the content or meeting of the given symptoms. Total time spent caring for the patient today was 30 minutes. This includes time spent before the visit reviewing the chart, time spent during the visit, and time spent after the visit and documentation. Orders: Orders AMB Urinalysis Automated Today R35.0 - Frequency of micturition Rheumatoid Factor Today M25.50 - Pain in unspecified joint Referrals Dermatology Referral R23.4 - Changes in skin texture Medications: New meloxicam 7.5 mg PO DAILY 30 tabs 1RF
== END 2024-09-24 11:37 | disposition home or self-care (01) ==
LOC: HO.HMCH 10:10
PROVIDERS: PCP Internal Medicine
DX: M25.50 Pain in unspecified joint (principal); R23.4 Changes in skin texture; R25.2 Cramp and spasm; R35.89 Other polyuria; R35.0 Frequency of micturition

== ENCOUNTER → 2024-09-24 10:09 | Outpatient (BNVA) | payer MEDICARE, SELFPAY | PROVIDERS: PCP Internal Medicine | DX: M25.50 Pain in unspecified joint (principal); R23.4 Changes in skin texture; R25.2 Cramp and spasm; R35.89 Other polyuria | CPT/HCPCS: 81003; 99212 ==

== ENCOUNTER 2024-11-02 11:22 | Outpatient (AMB) | payer MEDICARE, SELFPAY ==
[2024-11-02 11:30] VITALS: BP 124/83; PULSE 82; TEMP 36.6; O2SAT 98
--- NOTE | 2024-11-02 11:30 | MHC.OFFWIV ---
Intake Vital Signs 11/02/24 11:30 Height 5 ft 4 in BP 124/83 Blood Pressure Location Lt brachial Position Sitting Pulse 82 Pulse Source Pulse Oximeter Temp 97.9 F Temp Source Oral Pulse Oximetry (%) 98 Intake Visit Reasons: EP LT Rib pain Intake Note: Pt is here for rib pain when coughing and sneezing Patient Tobacco Use Status: Former Tobacco user Allergies ciprofloxacin [Cipro] Allergy (Unknown, Verified 11/02/24 11:31) Unknown pravastatin Adverse Reaction (Intermediate, Verified 11/02/24 11:31) Leg cramps rosuvastatin Adverse Reaction (Intermediate, Verified 11/02/24 11:31) Muscle Pain simvastatin Adverse Reaction (Intermediate, Verified 11/02/24 11:31) Muscle pain zetia Allergy (Mild, Uncoded 09/24/24 10:16) muscle aches Do you need a note to return to daycare/school/sports/work: No HPI HPI Comments History of Present Illness Details She presents to office with rib pain She had insulation put into her house but they put a jam under the door and she tripped and fell over it Occured last week L side ribs under axilla was injured No HT or LOC Bruise L arm resolved She said at rest minimal Pain with cough and movement of arms and trunk No blood thinner use No pain medicine used No SOB PFSH Medical History (Updated 11/02/24 @ 11:38 by Dahlia Yuen PA-C) Hypercholesterolemia Anxiety Impaired glucose tolerance Surgical History History of cataract surgery Hx of tonsillectomy Family History Father No problems noted. Mother No problems noted. Sister Ovarian cancer Sister Lung cancer Social History (Updated 05/17/24 @ 09:27 by Ro Velásquez MD) Housing: House Alcohol intake: current Alcohol intake frequency: a few times a month Comment: once a month 1-2 drinks Patient Tobacco Use Status: Former Tobacco user Tobacco use type: Cigarette Years Smoked: late 20 year old e-Cigarette/Vaping Use: Never Used service: No Current occupational status: retired Cognitive needs: No Hearing needs: No Vision needs: No Review of Systems Const Denies chills, Denies fever(s) and Denies headache(s) Eyes Denies blurry vision ENT Denies headache(s) Card Denies chest pain and Denies dyspnea Resp Denies dyspnea GI Denies abdominal pain Musc Reports back pain (L sided rib pain) Skin/Breast Reports skin pain (bruise L arm and rib which has resolved) Neuro Denies headache(s) Physical Exam Vital Signs: Last Vital Signs Temp 97.9 F 11/02/24 11:30 Pulse 82 11/02/24 11:30 BP 124/83 11/02/24 11:30 Pulse Ox 98 11/02/24 11:30 General: Non-toxic, NAD. Speaking full sentences. Skin: Warm dry throughout. No ecchymosis or skin discoloration noted to L posterior back, lateral ribs or L lateral breast tissue Eye: EOMI Neck: No c or t spine tenderness midline to palpation Respiratory: CTA bilaterally. No wheezes, rales or rhonchi Cardiac: RRR. No murmur MSK: Slight tenderness to palpation L lateral ribs along rib 4-5 region extending to L anterior chest wall/breast tissue. Full ROM extremities. Abdomen: No upper abdominal tenderness to palpation Neurology: Alert. No aphasia or facial droop. Gait without abnormality Psych: Good mood and affect Assessment & Plan Assessment & Plan (1) Rib pain on left side: Code(s): R07.81 - Pleurodynia Plan: Patient seen and evaluated. Lungs CTA and chest xray reviewed by myself without fx or pneumothorax noted Discussed SalonPas OTC use Continue intermittent deep breaths to prevent atelectasis Will call her with any abnormal xray reading. Patient gave verbal understanding and had no additional questions or concerns at time of discharge All questions answered Orders: Orders XR ribs LT min 3V w CXR1V Today R07.81 - Pleurodynia Coding Level of Care Code Est Pt Level 3 (30927) Diagnoses Rib pain on left side R07.81
== END 2024-11-02 12:09 | disposition home or self-care (01) ==
PROVIDERS: PCP Internal Medicine; Visit Provider Physician Assistant
DX: R07.81 Pleurodynia (principal)

== ENCOUNTER 2024-11-02 11:40 | Outpatient (REF) | payer MEDICARE, SELFPAY ==
--- NOTE | ~2024-11-02 | XR_ITS ---
EXAMINATION: XR RIBS, LEFT CLINICAL INFORMATION: R07.81 - Pleurodynia COMPARISON: None available. TECHNIQUE: 4 views of the left ribs were obtained. FINDINGS: Dextroscoliosis of the thoracolumbar spine with multilevel degenerative changes. Heart size is normal. There is no gross pneumothorax. Degenerative changes in the bilateral shoulders. Possible trace left pleural effusion. Diffuse demineralization. No displaced left rib fracture is appreciated. XR/XR ribs LT min 3V w CXR1V IMPRESSION: 1. No displaced rib fracture appreciated. 2. Diffuse demineralization. 3. Possible trace left pleural effusion. This study was presented today to November 04, 2024 for interpretation. Stat results provided at this time as requested by referring provider. Electronically signed by: Jamaica Whitten MD 11/04/2024 09:27 AM VICKI MIN
== END 2024-11-02 11:41 | disposition home or self-care (01) ==
LOC: HO.HMGCX 11:40
PROVIDERS: PCP Internal Medicine; Visit Provider Physician Assistant
DX: R07.81 Pleurodynia (principal)
CPT/HCPCS: 71101; 99212

== ENCOUNTER 2025-02-07 11:46 | Outpatient (REF) | payer MEDICARE, SELFPAY ==
[2025-02-07 12:50] LABS: Appearance Urine Clear; Color Urine Yellow; Glucose Urine UA Negative (Negative); Leukocyte Esterase Urine Small (1+) (Negative); Nitrite Urine Negative (Negative); PH 5.5 (5.0-9.0); Specific Gravity - Urine 1.025 (1.005-1.025); UMIC TRIGGER UACC YES; Urine Blood Negative (Negative); Urine Ketones Trace mg/dL (Negative); Urine Protein Negative (Neg-Trace)
[2025-02-07 13:10] LABS: Bacteria Urine None Seen (None Seen); Hyaline Casts Urine 0-2 /LPF (0-2); RBC Urine 0-2 /HPF (0-2); Squamous Epithelial Cell Urine 0-2 /HPF (0-2); UACC Culture Trigger YES; WBC Urine 0-5 /HPF (0-5)
== END 2025-02-07 11:47 | disposition home or self-care (01) ==
LOC: HO.LAB 11:46
PROVIDERS: PCP Internal Medicine; Visit Provider Internal Medicine
DX: R30.0 Dysuria (principal); I10 Essential (primary) hypertension
CPT/HCPCS: 81001; 87086

== ENCOUNTER 2025-04-16 07:27 | Outpatient (REF) | payer MEDICARE, SELFPAY ==
--- OUTSIDE RECORDS SUMMARY | 2025-04-16 07:30 | XMS_ITS | Patient Health Record ---
Author Organization [facility] Address 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 Primary Care Provider Sumi ContrerasJanetli Unavailable [phone] Allergies No Known Allergies Results Component Value Reference Range Notes PDF Report Reviewed date:05/16/2024 08:38:02 AM Interpretation: Performing Lab:[facility], [address] [place] [address], Phone - [phone], Director - Joy Notes/Report: Urine Culture, Routine-[id number] Reviewed date:05/16/2024 01:14:52 PM Interpretation: Performing Lab:[facility], [address] [place] [address], Phone - [phone], Director - MDJodry Notes/Report: Urine Culture, Routine Final report Result 1 No growth Urinalysis, Complete-[id number] Reviewed date:05/16/2024 08:39:07 AM Interpretation: Performing Lab:[facility], [address] [place] [address], Phone - [phone], Director - MDJodry Notes/Report: Specific [place] 1.009 1.005-1.030 pH 6.5 5.0-7.5 Urine-Color Yellow Yellow Appearance Clear Clear WBC Esterase Negative Negative Protein Negative Negative/Trace Glucose Negative Negative Ketones Negative Negative Occult Blood Negative Negative Bilirubin Negative Negative Urobilinogen,Semi-Qn 0.2 0.2-1.0 mg/dL Nitrite, Urine Negative Negative Microscopic Examination Micr oscopic follows if indicated. Microscopic Examination See below: Micr oscopic was indicated and was performed. WBC None seen 0 - 5 /hpf RBC None seen 0 - 2 /hpf Epithelial Cells (non renal) None seen 0 - 10 /hpf Casts None seen None seen /lpf Bacteria Many None seen/Few Urinalysis Reviewed date:05/14/2024 01:37:34 PM Interpretation: Performing Lab: Notes/Report: NITRITE Neg PH 6.0 PROTEIN Neg S.G 1.010 WBC Trace GLUCOSE Neg KETONES Neg UROBILINOGEN Neg BILIRUBIN Neg BLOOD Neg Reason For Referral No Information Medications Medication SIG (Take, Route, Fr equency, Duration) Notes Start Date End Date Status Estradiol 10 MCG 1 _insert Vaginal Tw o times a Week for 90 days 05/14/2024 Active Multivitamins 1 ORAL daily for -3 03/28/2012 Active Vitamin D-3 1000 UNIT 1 capsule Orally Once a day Active Vitamin B Complex ORAL daily for -3 03/28/2012 Active Vitamin C 500 MG as directed Orally Active Social History Tobacco Use: Social History Observation Description Date Details (start date - stop date) Former Smoker NA - NA Tobacco Use/Smoking Question Answer Notes Are you a former smoker How long has it been since you last smoked? 5-10 years Alcohol Screen (Audit-C) Question Answer Notes Did you have a drink contain ing alcohol in the past year? Yes How often did you have a dri nk containing alcohol in the past year? 2 to 3 times a week (3 points) How many drinks did you have on a typical day when you were drinking in the past year? 1 or 2 drinks (0 point) Points 3 Interpretation Positive Problems Problem Type SNOMED Code ICD Code Onset Dates Problem Status W/U Status Risk Notes Problem Postmenopausal atrophic vaginitis (12164855) Postmenopausal atrophic vaginitis (N95.2) Active confirmed Problem Hyperlipidemia (35218493) Other and unspecified hyperlipidemia (272.4) Active confirmed Major Problem Benign essential hypertension (5701721) Essential hypertension, benign (401.1) Active confirmed Major Problem Female genital organ symptoms (720881857) Other specified symptom associated with female genital organs (625.8) Active confirmed Major Problem Menopausal symptom (92167737) Symptomatic menopausal or female climacteric states (627.2) Active confirmed Major Problem Flatulence, eructation and gas pain (586019876) Flatulence, eructation, and gas pain (787.3) Active confirmed Major Problem Urinary frequency (642990941) Urinary frequency (788.41) Active confirmed Major Problem Gynecological examination normal (029206283553520) Routine gynecological examination (V72.31) Active confirmed Major Problem Family history of malignant neoplasm of ovary (693346690) Family history of malignant neoplasm, ovary (V16.41) Active confirmed Major Problem Screening for malignant neoplasm of colon (696921296) Special screening for malignant neoplasms, colon (V76.51) Active confirmed Major Vital Signs Temperature 97.7 degrees Fahrenheit 05/14/2024 Blood pressure diastolic 76 mm Hg 05/14/2024 Height 63.5 in 05/14/2024 Blood pressure systolic 116 mm Hg 05/14/2024 Weight 159 lbs 05/14/2024 BMI 27.72 kg/m2 05/14/2024 Encounters Encounter Location Date Provider [facility] [address] [address] 05/17/2024 Sadia Contreras Postmenopausal atrophic vaginitis N95.[address] [id number] 05/21/2024 Sadia Contreras Urinary tract infection, site not specified N39.0 [facility] [address] [address] 05/14/2024 Sadia Contreras Encounter for screening mammogram for malignant neoplasm of breast Z12.31 ; Personal history of urinary (tract) infections Z87.440 ; Postmenopausal atrophic vaginitis N95.2 ; Encounter for gynecological examination (general) (routine) without abnormal findings Z01.419 ; Other specified disorders of bone density and structure, multiple sites M85.89 and Family history of malignant neoplasm of breast Z80.3 Assessments Encounter Date Diagnosis (ICD Code) Assessment Notes Treatment Notes Treatment Clinical Notes Section Notes 05/21/2024 Urinary tract infection, site not specified (ICD-10 - N39.0) 05/17/2024 Postmenopausal atrophic vaginitis (ICD-10 - N95.2) 05/14/2024 Encounter for screening mammogram for malignant neoplasm of breast (ICD-10 - Z12.31) REGULAR MAMMOGRAMS AND SBE'S WERE RECOMMENDED. 05/14/2024 Personal history of urinary (tract) infections (ICD-10 - Z87.440) DISCUSSED PREVIOUS HX OF UTI AND ANTIBIOTIC TX GIVEN BY PCP. SHE HAD NO UTI SYMPTOMS EVEN BEFORE TX. UA AND URINE C/S WERE SENT [facility]. 05/14/2024 Postmenopausal atrophic vaginitis (ICD-10 - N95.2) DISCUSSED FINDINGS, DX AND TX OPTIONS. DISCUSSED TX OPTIONS INCLUDING INTRAVAGINAL ESTROGEN INCLUDING YUVAFEM. DISCUSSED HOW THIS MEDICATION MAY HELP DECREASE RISK OF UTI'S AND VAGINAL ISSUES. PAT HAS NO CONTRAINDICATIONS AND ACCEPTS RISKS AND AGREED TO TRY. 05/14/2024 Encounter for gynecological examination (general) (routine) without abnormal findings (ICD-10 - Z01.419) NO MORE PAP TESTS. 05/14/2024 Other specified disorders of bone density and structure, multiple sites (ICD-10 - M85.89) DISCUSSED HER LAST BMD AND OSTEOPENIA AND ITS IMPACT ON HER HEALTH. ADEQUATE CALCIUM AND VIT D. WEIGHT BEARING EXERCISES. REPEAT BMD THIS YEAR. 05/14/2024 Family history of malignant neoplasm of breast (ICD-10 - Z80.3) DISCUSSED HER SISTER'S HX OF BOTH BREAST AND OVARIAN CA. AFFECTED SISTER IS BRCA NEGATIVE. Plan Of Treatment Pending Test Test Name Order Date MAMMOGRAM, SCREENING 05/04/2021 MAMMOGRAM, SCREENING 05/14/2024 MAMMOGRAM, SCREENING 05/11/2023 MAMMOGRAM, SCREENING 05/06/2022 MAMMOGRAM, SCREENING 04/01/2015 25OH VITAMIN D 05/10/2022 COMPREHENSIVE METABOLIC PANEL 05/10/2022 N-TELOPEPTIDE CROSS 05/10/2022 PTH, INTACT 05/10/2022 THIN PREP,HPV,KVNG IF HPV+ (>29YR)(SCRN) 04/12/2018 TSH 05/10/2022 BONE DENSITY 05/04/2021 BONE DENSITY 05/11/2023 MM Digital Mammo Screening 05/04/2021 MM Digital Mammo Screening 05/14/2024 MM Digital Mammo Screening 05/11/2023 MM Digital Mammo Screening 05/06/2022 Urinalysis, Complete-[id number] 05/21/2024 Urine Culture, Routine-[id number] 05/21/2024 Next Appt Details Provider Name:Sadia Rimma lujan, 05/15/2025 09:40:00 AM, [address], [address], [place], [address], Insurance Providers Payer Name Payer Address Payer Phone Subscriber Number Group Number Insured Name Patient Relationship to Insured Coverage Start Date Coverage End Date [employer] MED[employer] HMO [address] [place] [address] [id number] RENETTA SEWELL Self - patient is the insured Medical (General) History Medical History History ICD Code Gas pain R14.1 Other specified conditions a ssociated with female genital organs and menstrual cycle N94.89 Other hyperlipidemia E78.4 Essential (primary) hypertension I10 Menopausal and female climacteric states N95.1 Family history of malignant neoplasm of ovary Z80.41 Family history of malignant neoplasm of breast Z80.3 Postmenopausal atrophic vaginitis N95.2 Abdominal distension (gaseous) R14.0 Surgical History Surgery Date(Month/Year) Colonoscopy Tonsillectomy [place] Hospitalization History Reason Date(Month/Year) See Surgical Hx 2 Vaginal Deliveries
[2025-04-16 08:14] LABS: Appearance Urine Clear; Color Urine Yellow; Glucose Urine UA Negative (Negative); Leukocyte Esterase Urine Small (1+) (Negative); Nitrite Urine Negative (Negative); Specific Gravity - Urine 1.015 (1.005-1.025); UMIC TRIGGER UACC YES; Urine Blood Negative (Negative); Urine Ketones Negative (Negative); Urine Protein Negative (Neg-Trace)
[2025-04-16 08:27] LABS: Bacteria Urine None Seen (None Seen); Hyaline Casts Urine 0-2 /LPF (0-2); RBC Urine 0-2 /HPF (0-2); Squamous Epithelial Cell Urine 0-2 /HPF (0-2); UACC Culture Trigger YES; WBC Urine 0-5 /HPF (0-5)
== END 2025-04-16 07:28 | disposition home or self-care (01) ==
LOC: HO.LAB 07:27
PROVIDERS: PCP Internal Medicine; Visit Provider Internal Medicine
DX: R39.9 Unspecified symptoms and signs involving the genitourinary system (principal)
CPT/HCPCS: 81001; 81003; 87086

== ENCOUNTER 2025-04-18 06:42 | Outpatient (REF) | payer MEDICARE, SELFPAY ==
[2025-04-18 07:00] LABS: MANUAL DIFF FLAG NO
[2025-04-18 07:08] LABS: Basophils Absolute Auto 0.1 X10*3/uL (0.0-0.2); Basophils Percent Auto 0.8 % (0-2); Eosinophils Absolute Auto 0.1 X10*3/uL (0.0-0.4); Eosinophils Percent Auto 2.3 % (0-4); Hematocrit 42.5 % (37.0-47.0); Hemoglobin 14.1 g/dl (12.0-16.0); Imm Gran Abs Auto 0.02 X10*3/uL (0.00-0.03); Imm Gran Pct Auto 0.3 % (0.0-0.4); Lymphocytes Absolute Auto 1.6 X10*3/uL (1.2-4.9); Lymphocytes Percent Auto 25.9 % (20-40); Mean Corpuscular HGB Conc 33.2 g/dl (31.0-35.0); Mean Corpuscular Hemoglobin 30.6 pg (27.0-33.0); Mean Corpuscular Volume 92.2 fL (80.0-98.0); Mean Platelet Volume 9.5 fL (9.4-12.3); Monocytes Absolute Auto 0.5 X10*3/uL (0.1-1.2); Monocytes Percent Auto 8.2 % (2-11); Neutrophils Absolute Auto 3.8 x10*3/uL (2.0-8.3); Neutrophils Percent Auto 62.5 % (45-73); Platelet Count 206 X10*3/uL (160-400); Red Blood Count 4.61 X10*6/uL (4.20-5.50); Red Cell Distribution Width 12.9 % (11.0-16.0); White Blood Count 6.1 X10*3/uL (4.8-10.8)
[2025-04-18 07:30] LABS: Estimated Average Glucose 111 mg/dL; Hemoglobin A1c % 5.5 % (<6.0); Total Hemoglobin (HGBA1C) 3743.2029 umol/L
[2025-04-18 07:46] LABS: Alanine Aminotransferase 25 U/L (0-31); Albumin Level 4.5 g/dL (3.5-5.0); Alkaline Phosphatase 90 U/L (39-117); Anion Gap 14 (12-20); Aspartate Amino Transferase 27 U/L (5-31); Bilirubin Total 0.7 mg/dL (0.0-1.0); Blood Urea Nitrogen 21 mg/dL (9-16); Calcium 9.8 mg/dL (8.4-10.2); Carbon Dioxide 28 mmol/L (22-29); Chloride 108 mmol/L (96-108); Cholesterol 199 mg/dL (<200); Estimated Glomerular Filt Rate > 60; Glucose Random 108 mg/dL (60-115); HDL Cholesterol 69 mg/dL (>40); LDL Cholesterol Calculated 107 mg/dL (<100); Potassium 4.5 mmol/L (3.3-5.1); Sodium 145 mmol/L (135-145); Total Protein 7.5 g/dL (6.5-8.0); Triglycerides 116 mg/dL (<150)
[2025-04-18 08:03] LABS: Free T4 (Free Thyroxine) 0.97 ng/dL (0.71-1.85); Thyroid Stimulating Hormone 1.21 uIU/mL (0.32-4.0); Vitamin D 25-OH Total 63.8 ng/mL (>30)
[2025-04-18 08:07] LABS: Folate 14.3 ng/mL (> or = 4.0); Vitamin B12 485 pg/mL (200-900)
== END 2025-04-18 06:43 | disposition home or self-care (01) ==
LOC: HO.LAB 06:42
PROVIDERS: PCP Internal Medicine; Visit Provider Internal Medicine
DX: R73.01 Impaired fasting glucose (principal); E78.00 Pure hypercholesterolemia, unspecified
CPT/HCPCS: 36415; 80053; 80061; 82306; 82607; 82746; 83036; 84439; 84443; 85025

== ENCOUNTER 2025-07-04 08:37 | Outpatient (AMB) | payer MEDICARE, SELFPAY ==
[2025-07-04 08:48] VITALS: BP 136/76; PULSE 66; O2SAT 96; BMI 26.5
--- NOTE | 2025-07-04 08:48 | MHC.PC.OV ---
Vital Signs 07/04/25 08:48 Height 5 ft 4 in Weight 154 lb 6 oz BMI 26.5 BP 136/76 Blood Pressure Location Lt brachial Position Sitting Pulse 66 Pulse Source Pulse Oximeter Pulse Oximetry (%) 96 Intake Visit Reasons: Annual Exam Coding Technician Required: No Accompanied by: Self / Same As Patient Allergies ciprofloxacin (Cipro) Allergy (Unknown, Verified 07/04/25 09:06) Unknown pravastatin Adverse Reaction (Intermediate, Verified 07/04/25 09:06) Leg cramps rosuvastatin Adverse Reaction (Intermediate, Verified 07/04/25 09:06) Muscle Pain simvastatin Adverse Reaction (Intermediate, Verified 07/04/25 09:06) Muscle pain zetia Allergy (Mild, Uncoded 07/04/25 09:06) muscle aches Medication List - Last Reconciled 07/04/25 by Mago Christianson PA-C ascorbate calcium (vitamin C) 500 mg PO DAILY calcium carbonate-vitamin D3 600 mg-5 mcg (200 unit) (Calcium 600 + D(3)) 1 tab PO DAILY magnesium oxide 400 mg PO DAILY meloxicam 7.5 mg PO DAILY zoexfuyllatu-vzzl-dqilu acid 18-400 mg-mcg (Centrum Complete) 1 tab PO DAILY vitamin B complex 1 tab PO DAILY Tobacco use date assessed: 07/04/25 Fall risk assessment: No Falls in past year Dental Screening Dental Screen Date: 07/04/25 Did you have a dental visit in the last 12 months?: No Did you have a dental problem in the last 6 months where you did not have access to dental care?: No Was dental information given to patient?: No HPI Annual Exam HPI Details 80-year-old overweight female with hypertension hypercholesterolemia GERD impaired glucose tolerance and generalized anxiety disorder last seen 09/2024 coming in for annual exam. She has been seeing dermatology for basal cell carcinoma s/p Mohs surgery 03/09/2025. Presenting with a wellness check and follow-up on basal cell carcinoma. Basal cell carcinoma was diagnosed following a persistent scab on the nose, which led to a dermatology referral and subsequent diagnosis. The carcinoma was deep, requiring surgical intervention and skin grafting. The patient reports being diligent with health screenings, including mammograms and colonoscopies, and is up-to-date with vaccinations. Arthritis affects the patient's feet and hands, causing discomfort, particularly in the morning. The patient manages arthritis symptoms with exercise and rgjs-rta-ajqbybs treatments. The patient experiences stress due to her 's Alzheimer's disease and family losses. Sleep disturbances are reported, attributed to stress and financial concerns. 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 Mother No problems noted. Sister Ovarian cancer Sister Lung cancer Social History Housing: House Alcohol intake: current Alcohol intake frequency: a few times a month Comment: once a month 1-2 drinks Patient Tobacco Use Status: Former Tobacco user Tobacco use type: Cigarette Years Smoked: late 20 year old e-Cigarette/Vaping Use: Never Used service: No Current occupational status: retired Cognitive needs: No Hearing needs: No Vision needs: No Questionnaire PHQ-9 Over the last 2 weeks, how often have you been bothered by any of the following problems? 1. Little interest or pleasure in doing things: not at all 2. Feeling down, depressed, or hopeless: not at all 3. Trouble falling or staying asleep, or sleeping too much: not at all 4. Feeling tired or having little energy: not at all 5. Poor appetite or overeating: not at all 6. Feeling bad about yourself - or that you are a failure or have let yourself or your family down: not at all 7. Trouble concentrating on things, such as reading the newspaper or watching television: not at all 8. Moving or speaking so slowly that other people could have noticed. Or the opposite - being so fidgety or restless that you have been moving around a lot more than usual: not at all 9. Thoughts that you would be better off or of hurting yourself in some way: not at all Total score: 0 Depression Screening Interpretation: Negative Depression Screening Done: Yes 53112 - PHQ-9 Billing: Yes Source: Developed by Drs. Sukumar Montero, Radha Cantor, Austin Hester and colleagues, with an educational nima from [employer]. Thrive Questionnaire Date Thrive assessed: 12/30/22 I am a: Patient What is your living situation today?: I have a steady place to live Within the past 12 months, did the food you bought not last and you didn't have the money to get more?: Never true Within the past 12 months, did you worry whether your food would run out before you got money to buy more?: Never true Do you have trouble paying for medicines?: No Do you have trouble getting transportation to medical appointments?: No Do you have trouble paying your heating and electricity bill?: No Do you have trouble taking care of your child, family member or friend?: No Do you have trouble with day-to-day activities such as bathing, preparing meals, shopping, managing finances, etc.?: No Are you currently unemployed and looking for a job?: No Are you interested in more education?: No Please select the resources that you would like help with: None Currently or been in a relationship where the following occur: No concerns reported THRIVE Score: 0 AUDIT C Alcohol Use Questionnaire (AUDIT-C) 1. How often do you have a drink containing alcohol?: Monthly or less 2. How many drinks containing alcohol do you have on a typical day when you are drinking?: 1 or 2 3. How often do you have six or more drinks on one occasion?: Never Total Score: 1 Score Reviewed/Action Taken: Yes LAUREEN-7 AMB Questionnaire LAUREEN-7 Date LAUREEN - 7 assessed: 05/17/24 Feeling nervous, anxious, or on edge: 0 = Not at all Not being able to stop or control worryin = Several days Worrying too much about different things: 0 = Not at all Trouble relaxin = Not at all Being so restless that it is hard to sit still: 0 = Not at all Becoming easily annoyed or irritable: 0 = Not at all Feeling afraid as if something awful might happen: 0 = Not at all Total LAUREEN-7 score (0-4 normal; 5-9 mild; 10-14 moderate; 15-21 severe): 1 Source: Developed by Drs. Sukumar Montero, Radha Cantor, Austin Hester and colleagues, with an educational nima from [employer]. LAUREEN-7 Assessment Billing LAUREEN-7 Assessment Tool: LAUREEN-7 Assessment 67266 Review of Systems Const Denies body aches, Denies fatigue, Denies fever(s), Denies frequent falls, Denies headache(s) and Denies weakness Eyes Reports no additional complaints and Denies change in vision ENT Denies dysphagia, Denies dizziness, Denies facial pain, Denies headache(s), Denies nasal congestion and Denies odynophagia Card Denies chest pain, Denies syncope, Denies irregular heart rhythm, Denies leg edema, Denies lightheadedness and Denies dyspnea Resp Denies cough and Denies dyspnea GI Denies abdominal pain, Denies constipation, Denies dysphagia, Denies dyspepsia, Denies diarrhea, Denies nausea, Denies odynophagia and Denies vomiting Denies urinary frequency, Denies dysuria, Denies urinary hesitancy and Denies urinary urgency Musc Denies back pain and Denies myalgias Skin/Breast Reports system reviewed and no additional complaints, except as documented Neuro Denies dizziness, Denies syncope, Denies frequent falls, Denies headache(s) and Denies weakness Psych Reports no additional complaints Endo Denies fatigue Physical exam (Primary Care) Vital Signs: Last Vital Signs Pulse 66 07/04/25 08:48 BP 136/76 07/04/25 08:48 Pulse Ox 96 07/04/25 08:48 BMI result Body Mass Index 26.5 Tobacco/Smoking Status: Tobacco use Status Tobacco use date assessed 07/04/25 07/04/25 08:52 Patient Tobacco Use Status Former Tobacco user 07/04/25 08:49 Tobacco use type Cigarette 07/04/25 08:49 e-Cigarette/Vaping Use Never Used 07/04/25 08:49 PHQ-9: PHQ-9 Score PHQ-9: Total score 0 07/04/25 09:09 Depression Screening Interpretation: Negative Thrive Assessment: Date of Thrive Assessment Date Thrive assessed 12/30/22 07/04/25 08:49 Currently or been in a relationship where the following occur: No concerns reported Const General: cooperative, healthy appearing, comfortable and no acute distress Orientation/consciousness: patient oriented x3 HENMT Head: Yes normocephalic Ears: hearing grossly normal bilaterally, external ears normal, TM's normal bilaterally and EAC's normal General nose exam: Normal external nose present Face and sinus: Yes normal facial exam and Yes sinuses nontender Mouth: Normal oral and palatal mucosa present and tongue normal Throat: Yes posterior oropharynx normal Eyes General: appearance normal, both eyes and all related structures Conjunctivae: conjunctivae normal Pupils: Equal, round and reactive pupils present EOM: EOMs intact bilaterally and No Nystagmus present Neck Neck: Yes normal visual inspection, Yes full ROM and Yes no lymphadenopathy Chest Chest palpation & inspection: normal inspection of the chest Resp Effort & Inspection: normal respiratory effort Auscultation: clear to auscultation bilaterally, no crackles, no rales, no rhonchi, no wheezes and breath sounds present Cardio Rate: regular rate Rhythm: regular rhythm Peripheral pulses: radial pulses present and dorsalis pedis present GI Inspection: Yes normal to inspection and No Abdominal wall edema Palpation (GI): Soft to palpation, not firm and nontender Auscultation: normal bowel sounds Rectal Exam - Female: deferred General: Yes no CVA tenderness Back/Spine/Pelvis Back: no CVA tenderness Skin General skin exam: no rashes or lesions noted Neuro General: patient oriented x3 Cranial nerves: Yes Equal, round and reactive pupils present, Yes Midline tongue present, Yes Ability to bilaterally elevate shoulders present and No Nystagmus present Gait exam (Neuro): Normal gait present Extrem General: Yes normal to inspection, Yes full ROM, No no pedal edema and No edema Psych Speech and movement: Normal speech and movement present Affect: normal affect Insight: Good insight present (Psych) Judgement: Good judgement present (Psych) Coding Level of Care Code Est Pt Prev Care >65y(00906) Diagnoses Annual physical exam Z00.00 Generalized anxiety disorder F41.1 Hypercholesterolemia E78.00 Impaired fasting blood sugar R73.01 Overweight (BMI 25.0-29.9) E66.3 GERD (gastroesophageal reflux disease) K21.9 Additional Codes LAUREEN-7 Assessment Billing - LAUREEN-7 Assessment Tool: LAUREEN-7 Assessment 27620 ([id number]) PHQ-9 - 03733 - PHQ-9 Billing: Yes ([id number]) Assessment & Plan Assessment & Plan (1) Annual physical exam: Code(s): Z00.00 - Encounter for general adult medical examination without abnormal findings Category: Medical Plan: Patient is up-to-date on all recommended routine screenings and vaccinations for her age. Healthy diet and regular exercise is encouraged. Ordered for updated blood work today and plan to follow up yearly or sooner as needed (2) Generalized anxiety disorder: Code(s): F41.1 - Generalized anxiety disorder Category: Medical Plan: Patient reports anxiety related to life stressors. She states she has a good support system is not interested in medication or counseling at this time. Agrees to reach out if this should change (3) Hypercholesterolemia: Code(s): E78.00 - Pure hypercholesterolemia, unspecified Category: Medical Plan: Avoid foods that are high in cholesterol such as red meat, fried foods, eggs and baked goods. Triglyceride goal of less than 150 and LDL goal of less than 130. (4) Impaired fasting blood sugar: Code(s): R73.01 - Impaired fasting glucose Category: Medical Plan: Decrease the amount of carbohydrates such as pasta, bread, rice, and potatoes and limit the amount of sweets. Although fruits are generally healthy they should be eaten in moderation as they are still high in sugar. (5) Overweight (BMI 25.0-29.9): Code(s): E66.3 - Overweight Category: Medical Plan: Healthy diet and regular exercise is encouraged. (6) GERD (gastroesophageal reflux disease): Code(s): K21.9 - Gastro-esophageal reflux disease without esophagitis Category: Medical Plan: Avoid trigger foods such as citrus, tomato products, soda, caffeine, spicy foods and other foods that may be irritating to your stomach. Avoid laying flat 3-4 hours after eating and elevate the head of the bed 30 degrees to prevent acid from moving into the esophagus. Plan The patient will continue regular follow-ups for basal cell carcinoma, with a dermatology appointment scheduled to assess healing progress. For arthritis, the patient is advised to continue with regular exercise and may use ahpf-jbm-ygbybqp arthritis creams or heating pads for symptom relief. Stress management strategies were discussed, including the potential benefit of counseling, though financial constraints are a concern. Sleep disturbances may be addressed with pjsf-trc-sqgcvum magnesium supplements, avoiding liquid forms to prevent gastrointestinal side effects. This note was constructed using voice recognition software. While every effort has been made to ensure accuracy and scientific informatics leader, still areas may have been included sometimes these areas may affect the content or meeting of the given symptoms. Total time spent caring for the patient today was 30 minutes. This includes time spent before the visit reviewing the chart, time spent during the visit, and time spent after the visit and documentation. Patient was informed and verbally consented to the use of an ambient scribe for clinic note documentation during this visit. Orders: Orders Comprehensive Met. Panel Today R73.01 - Impaired fasting glucose Lipid Panel Today E78.00 - Pure hypercholesterolemia, unspecified TSH reflex Free T4 Today Z13.29 - Encounter for screening for other suspected endocrine disorder Vitamin D 25-OH Total Today Z13.21 - Encounter for screening for nutritional disorder Complete Blood Count Auto Diff Today E66.3 - Overweight, R73.01 - Impaired fasting glucose Vitamin B12 and Folate Today Z13.21 - Encounter for screening for nutritional disorder
--- OUTSIDE RECORDS SUMMARY | 2025-07-04 08:52 | XMS_ITS | Patient Health Record ---
Author Organization [facility] Address [address] [place] [address] Care Team Providers Care Facilities Custodian Name Role Phone CORETTA MENCHACA M.D. Primary Care Provider Sadia Tate Unavailable [phone] Allergies No Known Allergies Reason For Referral No Information Medications Medication SIG (Take, Route, Fr equency, Duration) Notes Start Date End Date Status Multivitamins 1 ORAL daily; Duration: -3 2 Active Vitamin B Complex ORAL daily; Duration: -3 012 Active Vitamin D-3 1000 UNIT 1 capsule Orally Once a day Active Vitamin C 500 MG as directed Orally Active Estradiol 10 MCG 1 _insert Vaginal Tw o times a Week; Duration: 90 days 05/14/2024 Active Social History Tobacco Use: Social History Observation Description Date Details (start date - stop date) Former Smoker NA - NA AUDIT-C (Standard) Question Answer Notes Did you have a drink contain ing alcohol in the past year? Yes How often did you have a dri nk containing alcohol in the past year? 2 to 3 times a week (3 points) How many drinks did you have on a typical day when you were drinking in the past year? 1 or 2 drinks (0 point) How often did you have six o r more drinks on one occasion in the past year? Never (0 point) Points 3 Interpretation Positive Tobacco Control (Standard) Question Answer Notes Tobacco use: Former smoker How long has it been since you last smoked? Grea ter than 10 years Problems Problem Type SNOMED Code ICD Code Onset Dates Problem Status W/U Status Risk Notes Problem Postmenopausal atrophic vaginitis (11363105) Postmenopausal atrophic vaginitis (N95.2) Active confirmed Problem Age-related osteoporosis (917210922) Age-related osteoporosis without current pathological fracture (M81.0) Active confirmed Problem Hyperlipidemia (53580878) Other and unspecified hyperlipidemia (272.4) Active confirmed Major Problem Benign essential hypertension (4185404) Essential hypertension, benign (401.1) Active confirmed Major Problem Female genital organ symptoms (977175859) Other specified symptom associated with female genital organs (625.8) Active confirmed Major Problem Menopausal symptom (18422699) Symptomatic menopausal or female climacteric states (627.2) Active confirmed Major Problem Flatulence, eructation and gas pain (166535867) Flatulence, eructation, and gas pain (787.3) Active confirmed Major Problem Urinary frequency (510970221) Urinary frequency (788.41) Active confirmed Major Problem Gynecological examination normal (045016094070225) Routine gynecological examination (V72.31) Active confirmed Major Problem Family history of malignant neoplasm of ovary (078970315) Family history of malignant neoplasm, ovary (V16.41) Active confirmed Major Problem Screening for malignant neoplasm of colon (152248871) Special screening for malignant neoplasms, colon (V76.51) Active confirmed Major Vital Signs Temperature 98.0 degrees Fahrenheit 05/15/2025 Blood pressure diastolic 64 mm Hg 05/15/2025 Height 63.5 in 05/15/2025 Blood pressure systolic 118 mm Hg 05/15/2025 Weight 150 lbs 05/15/2025 BMI 26.15 kg/m2 05/15/2025 Encounters Encounter Location Date Provider Diagnosis [facility] [address] [address] 05/15/2025 Sadia Contreras Encounter for screening mammogram for malignant neoplasm of breast Z12.31 ; Other specified disorders of bone density and structure, multiple sites M85.89 ; Postmenopausal atrophic vaginitis N95.2 ; Dense breasts, unspecified R92.30 and Encounter for gynecological examination (general) (routine) without abnormal findings Z01.419 Assessments Encounter Date Diagnosis (ICD Code) Assessment Notes Treatment Notes Treatment Clinical Notes Section Notes 05/15/2025 Encounter for screening mammogram for malignant neoplasm of breast (ICD-10 - Z12.31) REGULAR MAMMOGRAMS AND SBE'S WERE RECOMMENDED. 05/15/2025 Other specified disorders of bone density and structure, multiple sites (ICD-10 - M85.89) DISCUSSED HER LAST BMD'S AND OSTEOPENIA AND ITS IMPACT ON HER HEALTH. ADEQUATE CALCIUM AND VIT D. WEIGHT BEARING EXERCISES. REPEAT BMD IN 2025. 05/15/2025 Postmenopausal atrophic vaginitis (ICD-10 - N95.2) DISCUSSED FINDINGS, DX AND TX OPTIONS. PAT IS ASYMPTOMATIC AND REFUSES TX. 05/15/2025 Dense breasts, unspecified (ICD-10 - R92.30) DISCUSSED DENSE BREASTS ON MAMMOGRAM AND ITS IMPLICATIONS. 3D MAMMOGRAMS WERE RECOMMENDED. 05/15/2025 Encounter for gynecological examination (general) (routine) without abnormal findings (ICD-10 - Z01.419) NO MORE PAP TESTS. Plan Of Treatment Pending Test Test Name Order Date MAMMOGRAM, SCREENING 05/04/2021 MAMMOGRAM, SCREENING 05/06/2022 MAMMOGRAM, SCREENING 05/11/2023 MAMMOGRAM, SCREENING 05/14/2024 MAMMOGRAM, SCREENING 05/15/2025 MAMMOGRAM, SCREENING 04/01/2015 25OH VITAMIN D 05/10/2022 COMPREHENSIVE METABOLIC PANEL 05/10/2022 N-TELOPEPTIDE CROSS 05/10/2022 PTH, INTACT 05/10/2022 THIN PREP,HPV,KVNG IF HPV+ (>29YR)(SCRN) 04/12/2018 TSH 05/10/2022 BONE DENSITY 05/04/2021 BONE DENSITY 05/11/2023 BONE DENSITY 05/15/2025 MM Digital Mammo Screening 05/11/2023 MM Digital Mammo Screening 05/04/2021 MM Digital Mammo Screening 05/06/2022 MM Digital Mammo Screening 05/15/2025 MM Digital Mammo Screening 05/14/2024 Urinalysis, Complete-[id number] 05/21/2024 Urine Culture, Routine-[id number] 05/21/2024 Next Appt Details Provider Name:Sadia lujan, 05/21/2026 08:40:00 AM, [address], [address], [place], [address], Insurance Providers Payer Name Payer Address Payer Phone Subscriber Number Group Number Insured Name Patient Relationship to Insured Coverage Start Date Coverage End Date [employer] MEDIC[employer] HMO [address] [place] [address] [id number] RENETTA SEWELL Self - patient is the [...] atrophic vaginitis N95.2 Abdominal distension (gaseous) R14.0 Other specified disorders of bone densit y and structure, multiple sites M85.89 Surgical History Surgery Date(Month/Year) Colonoscopy Tonsillectomy [facility] Hospitalization History Reason Date(Month/Year) See Surgical Hx 2 Vaginal Deliveries
--- OUTSIDE RECORDS SUMMARY | 2025-07-04 08:52 | XMS_ITS | Patient Health Record ---
Author Organization [facility] Address [address] [place] [address] Care Team Providers Care Computer Installation Engineer Name Role Phone Ro Velásquez MD Primary Care Provider Sukumar Brown [phone] Allergies Allergen (clinical drug ingredient) Drug/Non Drug Allergy documented on EMR Reaction Allergy Type Onset Date Status seasonal (uncoded) Unknown Allergy A ctive Reason For Referral No Information Medications Medication SIG (Take, Route, Frequency, Duration) Notes Start Date End Date Status Multi Vitamin/Minerals - as directed Ora lly once a day Active Vitamin D 1000 UNIT 1 tablet Orally Once a day Active Lisinopril 5 MG 1 tablet Orally Once a day for 30 day(s) Active Simvastatin 5 MG 1 tablet in the even ing Orally Once a day for 30 day(s) Active Vitamin B Complex - as directed Orally o nce a day Active Fish Oil 1200 MG 1 capsule Orally Onc e a day for 30 day(s) Active Aspirin 325 MG 1 tablet Orally few times a week Active Vitamin C 500 MG 1 tablet Orally Once a day Active Immunizations Vaccine Route Administration Date Status Comme nts Influenza Unknown 08/29/2018 Administered Social History Tobacco Use: Social History Observation Description Date Details (start date - stop date) Former Smoker NA - NA Tobacco Use/Smoking Question Answer Notes Patient is a former smoker How long has it been since you last smoked? > 10 years Alcohol Screen Question Answer Notes Did you have a drink contain ing alcohol in the past year? Yes How often did you have a dri nk containing alcohol in the past year? 2 to 4 times a month (2 points) How many drinks did you have on a typical day when you were drinking in the past year? 1 or 2 drinks (0 point) How often did you have 6 or more drinks on one occasion in the past year? Never (0 point) Points 2 Interpretation Negative Section Notes: Nonsmoker; occ. alcohol Problems Problem Type SNOMED Code ICD Code Onset Dates Problem Status W/U Status Risk Notes Problem 72313331 Constipation, unspecified constipation type (K59.00) Active confirmed Problem 328295488 Positive colorectal cancer screening using Cologuard test (R19.5) Active confirmed Plan Of Treatment Future Test Test Name Order Date COLONOSCOPY 05/28/2019 Insurance Providers Payer Name Payer Address Payer Phone Subscriber Number Group Number Insured Name Patient Relationship to Insured Coverage Start Date Coverage End Date [facility] [place] [employer] [address] [place] [address] [id number] RENETTA SEWELL Self - patient is the insured Medical (General) History Medical History History ICD Code Hypertension Denies [place],DM,CVA,Lung disease,renal dise ase Hyperlipidemia Neg. screening colonoscopy 08/2007 Surgical History Surgery Date(Month/Year) tonsillectomy cataract-lens implants both eyes
== END 2025-07-04 09:42 | disposition home or self-care (01) ==
LOC: HO.HMCH 08:38
PROVIDERS: PCP Internal Medicine
DX: Z00.00 Encounter for general adult medical examination without abnormal findings (principal); F41.1 Generalized anxiety disorder; E78.00 Pure hypercholesterolemia, unspecified; R73.01 Impaired fasting glucose; E66.3 Overweight; K21.9 Gastro-esophageal reflux disease without esophagitis

== ENCOUNTER → 2025-07-04 08:37 | Outpatient (BNVA) | payer MEDICARE, SELFPAY | PROVIDERS: PCP Internal Medicine | DX: Z00.00 Encounter for general adult medical examination without abnormal findings (principal); I10 Essential (primary) hypertension; E78.00 Pure hypercholesterolemia, unspecified; K21.9 Gastro-esophageal reflux disease without esophagitis; F41.1 Generalized anxiety disorder; R73.01 Impaired fasting glucose; E66.3 Overweight; Z68.26 Body mass index [BMI] 26.0-26.9, adult | CPT/HCPCS: 96127; 99397 ==

== ENCOUNTER 2025-07-19 09:13 | Outpatient (AMB) | payer MEDICARE, SELFPAY ==
--- OUTSIDE RECORDS SUMMARY | 2025-07-19 09:15 | XMS_ITS | Patient Health Record ---
Author Organization [facility] Address [address] [place] [address] Care Team Providers Care Territory Service Representative Name Role Phone CORETTA MENCHACA M.D. Primary Care Provider Sadia Tate Unavailable [phone] Allergies No Known Allergies Reason For Referral [...] Status Risk Notes Problem Postmenopausal atrophic vaginitis (13071139) Postmenopausal atrophic vaginitis (N95.2) Active confirmed Problem Age-related osteoporosis (895327205) Age-related osteoporosis without current pathological fracture (M81.0) Active confirmed Problem Hyperlipidemia (45150844) Other and unspecified hyperlipidemia (272.4) Active confirmed Major Problem Benign essential hypertension (1511188) Essential hypertension, benign (401.1) Active confirmed Major Problem Female genital organ symptoms (913049194) Other specified symptom associated with female genital organs (625.8) Active confirmed Major Problem Menopausal symptom (10111506) Symptomatic menopausal or female climacteric states (627.2) Active confirmed Major Problem Flatulence, eructation and gas pain (772261623) Flatulence, eructation, and gas pain (787.3) Active confirmed Major Problem Urinary frequency (399558002) Urinary frequency (788.41) Active confirmed Major Problem Gynecological examination normal (775347064441986) Routine gynecological examination (V72.31) Active confirmed Major Problem Family history of malignant neoplasm of ovary (012104090) Family history of malignant neoplasm, ovary (V16.41) Active confirmed Major Problem Screening for malignant neoplasm of colon (973226990) Special screening for malignant neoplasms, colon (V76.51) Active confirmed Major Vital Signs Temperature 98.0 degrees Fahrenheit 05/15/2025 Blood pressure diastolic 64 mm Hg 05/15/2025 Height 63.5 in 05/15/2025 Blood pressure systolic 118 mm Hg 05/15/2025 Weight 150 lbs 05/15/2025 BMI 26.15 kg/m2 05/15/2025 Encounters Encounter Location Date Provider Diagnosis Total [address] [address] 05/15/2025 Sadia Contreras Encounter for screening mammogram [...] 05/15/2025 MM Digital Mammo Screening 05/14/2024 Urinalysis, Complete-[id number] 05/21/2024 Urine Culture, Routine-[id number] 05/21/2024 Next Appt Details Provider Name:Sadia lujan, 05/21/2026 08:40:00 AM, [address], [address], [place], [address], Insurance Providers Payer Name Payer Address Payer Phone Subscriber Number Group Number Insured Name Patient Relationship to Insured Coverage Start Date Coverage End Date [employer] MEDICARE HMO [address] [place] [address] [phone] [id number] RENETTA SEWELL Self - patient is the [...] M85.89 Surgical History Surgery Date(Month/Year) Colonoscopy Tonsillectomy [place] Hospitalization History Reason Date(Month/Year) See Surgical Hx 2 Vaginal Deliveries
--- OUTSIDE RECORDS SUMMARY | 2025-07-19 09:16 | XMS_ITS | Patient Health Record ---
Author Organization 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 Name Role Phone Ro Velásquez MD Primary Care Provider Sukumar Brown [phone] Allergies Allergen (clinical drug ingredient) Drug/Non Drug [...] Problem Status W/U Status Risk Notes Problem 41366144 Constipation, unspecified constipation type (K59.00) Active confirmed Problem 729565888 Positive colorectal cancer screening using Cologuard test (R19.5) Active confirmed Plan Of Treatment Future Test Test Name Order Date COLONOSCOPY 05/28/2019 Insurance Providers Payer Name Payer Address Payer Phone Subscriber Number Group Number Insured Name Patient Relationship to Insured Coverage Start Date Coverage End Date [facility] [employer] PROFESSIONAL CLAIMS [address] [place] [address] [id number] RENETTA SEWELL Self - patient is the insured Medical (General) History Medical History History ICD Code Hypertension Denies FL,DM,CVA,Lung disease,renal dise ase Hyperlipidemia Neg. screening colonoscopy 08/2007 Surgical History Surgery Date(Month/Year) tonsillectomy cataract-lens implants both eyes
[2025-07-19 09:38] VITALS: BP 110/60; PULSE 78; RESP 16; TEMP 36.8; O2SAT 97; BMI 26.6
--- NOTE | 2025-07-19 09:38 | AM.OFFWIN_ITS ---
Intake Vital Signs 3 07/19/25 09:38 Height 5 ft 4 in Weight 155 lb BMI 26.6 BP 110/60 Blood Pressure Location Rt brachial Position Sitting Respiration 16 Pulse 78 Pulse Source Pulse Oximeter Temp 98.2 F Temp Source Oral Pulse Oximetry (%) 97 Oxygen Delivery Method Room Air Intake Visit Reasons: EP Rt ankle pain Intake Note: Pt is here today c/o Rt ankle pain x1week ago Patient Tobacco Use Status: Former Tobacco user Allergies ciprofloxacin (Cipro) Allergy (Unknown, Verified 07/19/25 09:54) Unknown pravastatin Adverse Reaction (Intermediate, Verified 07/19/25 09:54) Leg cramps rosuvastatin Adverse Reaction (Intermediate, Verified 07/19/25 09:54) Muscle Pain simvastatin Adverse Reaction (Intermediate, Verified 07/19/25 09:54) Muscle pain zetia Allergy (Mild, Uncoded 07/19/25 09:43) muscle aches Medication List - Last Reconciled 07/19/25 by Lana Workman, [employer]- ascorbate calcium (vitamin C) 500 mg PO DAILY calcium carbonate-vitamin D3 600 mg-5 mcg (200 unit) (Calcium 600 + D(3)) 1 tab PO DAILY magnesium oxide 400 mg PO DAILY jgdhkqaqxvsj-qsma-feiwt acid 18-400 mg-mcg (Centrum Complete) 1 tab PO DAILY vitamin B complex 1 tab PO DAILY HPI HPI Comments 2 History of Present Illness0 Details History of Present Illness - The patient is an 80-year-old female p resenting with R ankle & foot pain. - Pain onset a week ago, possibly from e xercise involving toe-standing, prior to onset. - Pain is improving, characterized by ti ghtness rather than swelling. - No history of osteoporosis; has arthri tis in fingers and toes. + osteopenia, per report - Using aspirin and compression for pain relief with + effect. - Remains physically active, walking oft en despite discomfort. Review of Systems - Musculoskeletal: Reports pain in the r ight ankle and arthritis in fingers and toes. - Constitutional: Denies fever and chill s. - Skin: Denies redness or swelling. Physical Exam General: Well developed, well nourished, in no acute distress. Appears stated age. Diagnostic results Pending Discussion Notes I discussed with the patient the likely causes of her ankle pain, including the possibility of minor injury linked to recent exercise standing on toes. I advised obtaining an x-ray today to rule out a potential fracture, explaining that the results would be communicated via phone. We discussed the benefits of continued use of compression wear, which serves a similar function to a medical boot in providing support. I recommended considering copper-infused socks for arthritis relief, available at local pharmacies. Informed her regarding x-ray procedures and the assurance of prompt communication of the results once available. Patient was given time to ask questions. All questions were answered to their satisfaction. Assessment and Plan 1. Right Ankle Pain/Foot - Order x-ray to rule out fracture. - Use topical treatment for relief. - Continue with compression device. 2. Arthritis - Consider copper socks for relief. - No new medications. Patient Instructions - Use aspirin and the tight compression device on your ankle as instructed. - Attend the x-ray appointment today and expect a call with the results. - Try copper socks for your arthritis pa in. - Continue walking and staying active as able. [phone] * cell phone Consent Patient was informed and verbally consented to the use of an ambient scribe for clinic note documentation during this visit. Total time spent caring for the patient today was 30 minutes. This includes time spent before the visit reviewing the chart, time spent during the visit, and time spent after the visit on documentation, reviewing laboratory results, diagnostic imaging, medications, performing a medically necessary evaluation, counseling on diagnoses, care coordination, ordering appropriate tests, ordering appropriate medications, review of tests performed by other providers, reporting test results with the patient, communication with other healthcare providers. [facility] Medical History (Updated 07/19/25 @ 10:09 by Lana Workman, [facility]) Anxiety Basal cell carcinoma H/O Mohs micrographic surgery for skin cancer Hypercholesterolemia Impaired glucose tolerance Surgical History History of cataract surgery Hx of tonsillectomy Family History Father No problems noted. Mother No problems noted. Sister Ovarian cancer Sister Lung cancer Social History Housing: House Alcohol intake: current Alcohol intake frequency: a few times a month Comment: once a month 1-2 drinks Patient Tobacco Use Status: Former Tobacco user Tobacco use type: Cigarette Years Smoked: late 20 year old e-Cigarette/Vaping Use: Never Used service: No Current occupational status: retired Cognitive needs: No Hearing needs: No Vision needs: No Physical Exam Vital Signs: Last Vital Signs Temp 98.2 F 07/19/25 09:38 Pulse 78 07/19/25 09:38 Resp 16 07/19/25 09:38 BP 110/60 07/19/25 09:38 Pulse Ox 97 07/19/25 09:38 Oxygen Delivery Method Room Air 07/19/25 09:38 BMI result Body Mass Index 26.6 Extrem Right lower extremity: foot Details: normal capillary refill, normal to inspection, tenderness Location: of the lateral foot Location: at the base of 5th metatarsal, toes with normal ROM, no edema, vascular exam Details: dorsalis pedis pulse present, posterior tibial pulse present and normal capillary refill and tendon exam Details: active flexion normal and active extension normal Ankle/foot/toe images: 2 1. pain with palpation Assessment & Plan Assessment & Plan (1) Right ankle pain: Code(s): M25.571 - Pain in right ankle and joints of right foot Qualifiers: Chronicity: acute Qualified Code(s): M25.571 - Pain in right ankle and joints of right foot (2) Right foot pain: Code(s): M79.671 - Pain in right foot (3) Osteoarthritis: Code(s): M19.90 - Unspecified osteoarthritis, unspecified site Qualifiers: Osteoarthritis location: foot Osteoarthritis type: primary Laterality: bilateral Qualified Code(s): M19.071 - Primary osteoarthritis, right ankle and foot; M19.072 - Primary osteoarthritis, left ankle and foot Plan . Orders: Orders 2 XR foot RT min 3V Today M25.571 - Pain in right ankle and joints of right foot, M79.671 - Pain in right foot XR ankle RT 2V Today M25.571 - Pain in right ankle and joints of right foot, M79.671 - Pain in right foot Coding Level of Care Code Est Pt Level 4 (52719) Diagnoses Acute right ankle pain M25.571 Chronicity: acute Right foot pain M79.671 Primary osteoarthritis of both feet M19.071; M19.072 Osteoarthritis location: foot Osteoarthritis type: primary Laterality: bilateral
== END 2025-07-19 10:49 | disposition home or self-care (01) ==
PROVIDERS: PCP Internal Medicine; Visit Provider Nurse Practitioner Family
DX: M25.571 Pain in right ankle and joints of right foot (principal); M79.671 Pain in right foot; M19.071 Primary osteoarthritis, right ankle and foot; M19.072 Primary osteoarthritis, left ankle and foot

== ENCOUNTER 2025-07-19 09:13 | Outpatient (REF) | payer MEDICARE, SELFPAY ==
--- NOTE | ~2025-07-19 | XR_ITS ---
CLINICAL HISTORY: M79.671 - Pain in right foot --- Additional Notes or Special Instructions: pain over cuboid bone 5th metatarsal after standing on tip toes 2 views right ankle Comparison: CR - XR FOOT RT MIN 3V - 07/19/25 10:27 EDT Findings: AP and oblique view was performed. The lateral projection was evaluated on the separate right foot x-ray. Borderline widening superior clear space. Normal plafond. No osteochondral lesions. Calcaneus and subtalar joint intact. No acute fractures demonstrated. Small plantar calcaneal enthesophyte. Soft tissue swelling lateral malleolus Normal pre-Achilles fat pad. No radiopaque foreign body. Impression: 1. No acute fractures. Borderline widening superior clear space. 2. Soft tissue swelling lateral malleolus This document has been electronically signed by: Parag Coon MD on 07/19/2025 10:40:37
--- NOTE | ~2025-07-19 | XR_ITS ---
CLINICAL HISTORY: M79.671 - Pain in right foot --- Additional Notes or Special Instructions: pain over cuboid bone 5th metatarsal after standing on tip toes 3 views right foot Comparison: CR - XR ANKLE RT 2V - 07/19/25 10:25 EDT Findings: No fractures, subluxations or dislocations. No periostitis or bony destruction. Joint intervals are preserved. No marginal erosions or overhanging osteophytes Calcaneus and subtalar joint intact. Mild joint space narrowing and subchondral sclerosis of the midfoot. Small plantar calcaneal enthesophyte. Normal bone mineralization and soft tissues. Normal pre-Achilles fat pad. No radiopaque foreign body. Impression: 1. No acute fractures or malalignment. This document has been electronically signed by: Parag Coon MD on 07/19/2025 10:44:30
== END 2025-07-19 09:14 | disposition home or self-care (01) ==
LOC: HO.HMGCX 09:13
PROVIDERS: PCP Internal Medicine; Visit Provider Nurse Practitioner Family
DX: M25.571 Pain in right ankle and joints of right foot (principal); M19.071 Primary osteoarthritis, right ankle and foot; M19.072 Primary osteoarthritis, left ankle and foot
CPT/HCPCS: 73600; 73630; 99212

== ENCOUNTER → 2025-07-19 10:12 | Outpatient (BNV) | payer MEDICARE, SELFPAY | PROVIDERS: PCP Internal Medicine; Visit Provider Radiology Diagnostic Radiology | DX: M79.671 Pain in right foot (principal); R22.41 Localized swelling, mass and lump, right lower limb | CPT/HCPCS: 73600; 73630 ==

== ENCOUNTER 2025-09-01 09:28 | Outpatient (AMB) | payer MEDICARE, SELFPAY ==
[2025-09-01 09:30] VITALS: BP 134/68; PULSE 88; O2SAT 98; BMI 25.2
--- NOTE | 2025-09-01 09:30 | MHC.PC.OV ---
Vital Signs 09/01/25 09:30 Height 5 ft 4 in Weight 147 lb BMI 25.2 BP 134/68 Blood Pressure Location Lt brachial Position Sitting Pulse 88 Pulse Source Pulse Oximeter Pulse Oximetry (%) 98 Oxygen Delivery Method Room Air Intake Visit Reasons: discuss change in stool/ cramping in stomach Allergies ciprofloxacin (Cipro) Allergy (Unknown, Verified 09/01/25 09:31) Unknown pravastatin Adverse Reaction (Intermediate, Verified 09/01/25 09:31) Leg cramps rosuvastatin Adverse Reaction (Intermediate, Verified 09/01/25 09:31) Muscle Pain simvastatin Adverse Reaction (Intermediate, Verified 09/01/25 09:31) Muscle pain zetia Allergy (Mild, Uncoded 09/01/25 09:31) muscle aches Medication List - Last Reconciled 09/01/25 by Ro Velásquez MD calcium carbonate-vitamin D3 600 mg-5 mcg (200 unit) (Calcium 600 + D(3)) 1 tab PO DAILY lactobacillus combination no.4 (Probiotic) 3,000 mmu cells PO DAILY zmruzemuyojc-wrot-rsbnm acid 18-400 mg-mcg (Centrum Complete) 1 tab PO DAILY turmeric mg PO vitamin B complex 1 tab PO DAILY Tobacco use date assessed: 07/04/25 Fall risk assessment: No Falls in past year Last assessed Fall Risk: 09/01/25 Dental Screening Dental Screen Date: 07/04/25 [facility] Medical History (Updated 09/01/25 @ 09:53 by Ro Velásquez MD) Annual physical exam Basal cell carcinoma H/O Mohs micrographic surgery for skin cancer Hypercholesterolemia Anxiety Impaired glucose tolerance Surgical History History of cataract surgery Hx of tonsillectomy Family History Father No problems noted. Mother No problems noted. Sister Ovarian cancer Sister Lung cancer Social History Housing: House Alcohol intake: current Alcohol intake frequency: a few times a month Comment: once a month 1-2 drinks Patient Tobacco Use Status: Former Tobacco user Tobacco use type: Cigarette Years Smoked: late 20 year old e-Cigarette/Vaping Use: Never Used service: No Current occupational status: retired Cognitive needs: No Hearing needs: No Vision needs: No Questionnaire Thrive Questionnaire Date Thrive assessed: 07/04/25 I am a: Patient What is your living situation today?: I have a steady place to live Within the past 12 months, did the food you bought not last and you didn't have the money to get more?: Never true Within the past 12 months, did you worry whether your food would run out before you got money to buy more?: Never true Do you have trouble paying for medicines?: No Do you have trouble getting transportation to medical appointments?: No Do you have trouble paying your heating and electricity bill?: No Do you have trouble taking care of your child, family member or friend?: No Do you have trouble with day-to-day activities such as bathing, preparing meals, shopping, managing finances, etc.?: No Are you currently unemployed and looking for a job?: No Are you interested in more education?: No Please select the resources that you would like help with: None Currently or been in a relationship where the following occur: No concerns reported THRIVE Score: 0 LAUREEN-7 AMB Questionnaire LAUREEN-7 Date LAUREEN - 7 assessed: 05/17/24 Source: Developed by Drs. Sukumar Montero, Radha Cantor, Austin Hester and colleagues, with an educational nima from [employer]. Physical exam (Primary Care) Vital Signs: Last Vital Signs Pulse 88 09/01/25 09:30 BP 134/68 09/01/25 09:30 Pulse Ox 98 09/01/25 09:30 Oxygen Delivery Method Room Air 09/01/25 09:30 BMI result Body Mass Index 25.2 Tobacco/Smoking Status: Tobacco use Status Tobacco use date assessed 07/04/25 09/01/25 09:34 Patient Tobacco Use Status Former Tobacco user 09/01/25 09:34 Tobacco use type Cigarette 09/01/25 09:34 e-Cigarette/Vaping Use Never Used 09/01/25 09:34 Thrive Assessment: Date of Thrive Assessment Date Thrive assessed 07/04/25 09/01/25 09:34 Currently or been in a relationship where the following occur: No concerns reported Const General: alert; No acute distress Eyes Conjunctivae: conjunctivae normal Resp Auscultation: clear to auscultation bilaterally Cardio Rate: regular rate Rhythm: regular rhythm GI Inspection: Yes normal to inspection Extrem General: Yes normal to inspection and No edema Coding Level of Care Code Est Pt Level 4 (92157) Diagnoses Impaired fasting blood sugar R73.01 GERD (gastroesophageal reflux disease) K21.9 Generalized anxiety disorder F41.1 Acute gastroenteritis K52.9 Assessment & Plan Assessment & Plan (1) Impaired fasting blood sugar: Code(s): R73.01 - Impaired fasting glucose Category: Medical Plan: Decrease the amount of carbohydrate intake, pasta, bread, rice and potatoes are all sugar and that is aside from all the sweet stuff, remember that fruits are good but they are Sweet also. March 2025 last blood work (2) GERD (gastroesophageal reflux disease): Code(s): K21.9 - Gastro-esophageal reflux disease without esophagitis Category: Medical Plan: Avoid the foods that causes that usually spicy foods, tomato products, juices, coffee, soda and foods that your sensitive to. After eating do not lie down, allow 3-4 hours before in lie down. And keep the head of bed above 30 degrees to avoid the acid from going up. (3) Generalized anxiety disorder: Code(s): F41.1 - Generalized anxiety disorder Category: Medical Plan: Stable (4) Acute gastroenteritis: Code(s): K52.9 - Noninfective gastroenteritis and colitis, unspecified Category: Medical Plan: keep well hydrated start eating food with fiber Plan History of Present Illness The patient is an 80-year-old female presenting with gastrointestinal symptoms and right foot and ankle pain. The patient has a history of hypercholesterolemia, generalized anxiety disorder, and impaired glucose tolerance. Recent blood work indicated normal blood count and electrolytes, with mildly elevated blood sugar but normal hemoglobin A1c and improved cholesterol levels. Approximately two and a half weeks ago, the patient experienced diarrhea and vomiting after eating macaroni salad, which she believes was improperly stored. She denies fever or other flu-like symptoms, and the gastrointestinal symptoms resolved after a few days. She has since been cautious with her diet, focusing on hydration and consuming minimal food. The patient reports persistent right foot and ankle pain, for which she received a steroid injection from a monorail crane operator who suspected tendinitis. Exercises have been recommended to alleviate the pain, which is primarily on the side of the foot. Preventative care includes a colonoscopy last performed in 2018, a mammogram scheduled for April 2024, and a bone density test last done in April 2019. Health Maintenance - Colonoscopy last performed in 2018 - Mammogram scheduled for April 2024 - Bone density test last done in April 2019 Social History - Family Status: The patient is actively involved in caring for her , who is in a m[facility] with dementia and Alzheimer's disease, and assists her granddaughter who has a new baby. - Nutritional Intake: The patient has been cautious with her diet, consuming minimal food and focusing on hydration due to recent gastrointestinal issues. Review of Systems - Gastrointestinal: Reports diarrhea and vomiting following consumption of macaroni salad; denies fever, sore throat, or other flu-like symptoms. - Musculoskeletal: Reports right foot and ankle pain; denies recent trauma or falls. - General: Denies fever or other systemic symptoms. Physical Exam - Abdominal: No tenderness on palpation, no pain reported. - Respiratory: Regular breathing observed, no abnormalities noted. Results - Labs: Blood work in March showed normal blood count, normal electrolytes, renal function, mildly elevated blood sugar, normal hemoglobin A1c, improved cholesterol levels. Plan Patient was informed and verbally consented to the use of an ambient scribe for clinic note documentation during this visit. 1. Right Foot And Ankle Pain The patient reports persistent right foot and ankle pain, suspected to be tendinitis, for which she received a steroid injection from a monorail crane operator. Exercises have been recommended to alleviate the pain, focusing on improving foot movement and reducing inflammation. 2. Gastrointestinal Symptoms The patient experienced diarrhea and vomiting after consuming macaroni salad, which resolved after a few days. She has been advised to gradually reintroduce fiber into her diet to improve stool form and prevent recurrence. Discussion Notes During the visit, I discussed with the patient the likely cause of her gastrointestinal symptoms, which appeared to be related to the consumption of improperly stored food. I advised her to gradually reintroduce fiber into her diet to improve stool form and prevent recurrence of symptoms. For her right foot and ankle pain, I recommended continuing with the exercises suggested by her monorail crane operator to alleviate the tendinitis. Patient Instructions - Gradually reintroduce fiber into your diet to improve stool form. - Continue with recommended foot exercises to alleviate pain. - Monitor symptoms and report any recurrence of gastrointestinal issues. - Stay hydrated and maintain a balanced diet.
== END 2025-09-01 09:59 | disposition home or self-care (01) ==
LOC: HO.HMCH 09:29
PROVIDERS: PCP Internal Medicine; Visit Provider Internal Medicine
DX: R73.01 Impaired fasting glucose (principal); K21.9 Gastro-esophageal reflux disease without esophagitis; F41.1 Generalized anxiety disorder; K52.9 Noninfective gastroenteritis and colitis, unspecified

== ENCOUNTER → 2025-09-01 09:28 | Outpatient (BNVA) | payer MEDICARE, SELFPAY | PROVIDERS: PCP Internal Medicine; Visit Provider Internal Medicine | DX: R73.01 Impaired fasting glucose (principal); K21.9 Gastro-esophageal reflux disease without esophagitis; F41.1 Generalized anxiety disorder; K52.9 Noninfective gastroenteritis and colitis, unspecified; M25.571 Pain in right ankle and joints of right foot; M79.671 Pain in right foot | CPT/HCPCS: 99212 ==